=== PATIENT | female | born 1940 | race Caucasian/White ===

== ENCOUNTER 2018-02-21 15:25 | Outpatient (CLI) | payer MEDICARE ==
[~2018-02-21 15:25] MED LIST: BAC10T PO; GLIP5POW MC; LISI-222 PO; OMEP20CA4 PO; ONDA8TAB9 PO; OXYC-150 PO; ZOLP5TAB8 PO
== END 2018-02-21 23:59 | disposition home or self-care (01) ==
LOC: RAD 15:25
PROVIDERS: ATTEND Student in an Organized Health Care Education/Training Program
DX: R13.12 Dysphagia, oropharyngeal phase (principal); R49.0 Dysphonia; K21.9 Gastro-esophageal reflux disease without esophagitis
CPT/HCPCS: 74230

== ENCOUNTER 2018-12-26 10:25 | Emergency (ER) | payer MEDICARE ==
[~2018-12-26] VITALS: Ht 165.1 cm; Wt 79.0 kg
[2018-12-26] MEDS ORDERED: normal saline 1000ml 1,000 ML IV ONE ×2 (10:50→11:35)
[2018-12-26 11:15] LABS: BASOPHILS % (AUTO) 0.9 % (0-1); EOSINOPHILS # (AUTO) 0.2 X10'3 (0-0.9); EOSINOPHILS % (AUTO) 3.3 % (0-6); HEMATOCRIT 35.5 % (35.0-45.0); LYMPHOCYTES # (AUTO) 1.8 X10'3 (1.1-4.8); LYMPHOCYTES % (AUTO) 32.2 % (21-51); MEAN CORPUSCULAR HEMOGLOBIN 30.3 PG (27.0-31.0); MEAN CORPUSCULAR HGB CONC 33.8 g/dL (33.0-36.5); MEAN CORPUSCULAR VOLUME 89.8 FL (78-98); MEAN PLATELET VOLUME 7.3 FL (7.4-10.4); MONOCYTES # (AUTO) 0.5 X10'3 (0-0.9); MONOCYTES % (AUTO) 8.3 % (2-12); NEUTROPHILS # (AUTO) 3.1 X10'3 (1.8-7.7); NEUTROPHILS % (AUTO) 55.3 % (42-75); PLATELET COUNT 246 X10'3 (140-440); RED BLOOD COUNT 3.96 X10'6 (4.20-5.60); WHITE BLOOD COUNT 5.5 X10'3 (4.5-11.0)
[2018-12-26 11:31] LABS: ALANINE AMINOTRANSFERASE 18 U/L (12-78); ALBUMIN 3.7 G/DL (3.4-5.0); ALBUMIN/GLOBULIN RATIO 1.2 (1.1-1.5); ALKALINE PHOSPHATASE 77 IU/L (46-116); ANION GAP 8 (8-16); ASPARTATE AMINO TRANSFERASE 9 U/L (10-37); BILIRUBIN,TOTAL 0.6 MG/DL (0.1-1.0); BLOOD UREA NITROGEN 20 MG/DL (7-18); BUN/CREATININE RATIO 25.6 (6.6-38.0); CALCIUM 9.2 MG/DL (8.5-10.1); CHLORIDE 101 MMOL/L (99-107); CREATININE 0.78 MG/DL (0.40-0.90); GLUCOSE 258 MG/DL (70-104); POTASSIUM 4.6 MMOL/L (3.5-5.1); SODIUM 133 MMOL/L (135-145); TOTAL CARBON DIOXIDE 23.7 MMOL/L (24-32); TOTAL PROTEIN 6.7 G/DL (6.4-8.2); eGFR 72 ML/MIN
[2018-12-26 11:40] LABS: MAGNESIUM 1.6 MG/DL (1.5-2.4); PHOSPHORUS 3.6 MG/DL (2.3-4.5); TROPONIN I < 0.04 NG/ML (0.0-0.05)
[2018-12-26 12:53] LABS: CLARITY,URINE SLIGHTLY CLOUDY (Clear); COLOR,URINE YELLOW (Yellow); GLUCOSE, URINE NEGATIVE (Neg); KETONES,URINE NEGATIVE (Neg); LEUKOCYTE ESTERASE ,URINE SMALL (Neg); NITRITES, URINE POSITIVE (Neg); OCCULT BLOOD,URINE SMALL (Neg); PH,URINE 5.5 (4.8-8.0); PROTEIN,URINE NEGATIVE (Neg); UROBILINOGEN,URINE 0.2 E.U/dL (0.2-1.0)
[2018-12-26 12:54] VITALS: BP 184/89
[2018-12-26 12:55] LABS: UA COLLECTION TYPE CLN CATCH MIDSTREAM
[2018-12-26 13:00] LABS: BACTERIA,URINE 2+ /HPF (Neg); HYALINE CASTS 0-3 /LPF (NEGATIVE); SQUAMOUS EPITHELIAL CELL,UR FEW /LPF (FEW)
[2018-12-26 13:01] LABS: RBC,URINE 0-2 /HPF (0-2); WBC,URINE 0-4 /HPF (0-4)
--- NOTE | 2018-12-26 13:06 | NUR ---
relieving RN for lunch, pt is resting quietly on Dr Kehinde merino at bedside to reevaluate pt, PT stated she has urinated twice
[2018-12-26] MEDS ORDERED: CefTRIAXone/D5W-Rocephin 1gm 50 ML IV ONE (13:10)
[2018-12-26] MEDS ORDERED: fluconazole 100mg tablet PO ONE (13:10)
[2018-12-26] MEDS ORDERED: SULF1TAB49 PO (13:11)
== END 2018-12-26 14:19 | disposition home or self-care (01) ==
LOC: ER 10:25
DX: N39.0 Urinary tract infection, site not specified (principal); E86.0 Dehydration; I10 Essential (primary) hypertension; E11.9 Type 2 diabetes mellitus without complications; Z86.73 Personal history of transient ischemic attack (TIA), and cerebral infarction without residual deficits; Z98.61 Coronary angioplasty status; Z90.49 Acquired absence of other specified parts of digestive tract; Z98.890 Other specified postprocedural states; Z88.1 Allergy status to other antibiotic agents; Z88.5 Allergy status to narcotic agent; Z88.8 Allergy status to other drugs, medicaments and biological substances; Z79.899 Other long term (current) drug therapy
CPT/HCPCS: 36415; 71045; 80053; 81001; 82140; 83735; 84100; 84443; 84484; 85025; 85610; 87077; 87088; 87186; 93005; 96361; 96365; 99284; J0696; J7030

== ENCOUNTER 2019-03-01 20:24 | Inpatient (IN) | payer MEDICARE, OTHER ==
[~2019-03-01] VITALS: Ht 165.1 cm; Wt 79.7 kg
--- NOTE | 2019-03-01 20:48 | NUR ---
To CT via WC.
[2019-03-01] MEDS ORDERED: insulin regular, human 10 units/0.1 ml syringe IV ONE (21:15)
[2019-03-01] MEDS ORDERED: normal saline 1000ML IV soln IVB ONE (21:15)
[2019-03-01 21:21] LABS: BASOPHILS % (AUTO) 0.8 % (0-1); EOSINOPHILS # (AUTO) 0.2 X10'3 (0-0.9); EOSINOPHILS % (AUTO) 2.6 % (0-6); HEMOGLOBIN 12.5 g/dl (12.0-16.0); LYMPHOCYTES # (AUTO) 1.6 X10'3 (1.1-4.8); MEAN CORPUSCULAR HEMOGLOBIN 30.8 PG (27.0-31.0); MEAN CORPUSCULAR HGB CONC 33.7 g/dL (33.0-36.5); MEAN CORPUSCULAR VOLUME 91.5 FL (78-98); MEAN PLATELET VOLUME 7.5 FL (7.4-10.4); MONOCYTES # (AUTO) 0.5 X10'3 (0-0.9); NEUTROPHILS # (AUTO) 3.8 X10'3 (1.8-7.7); NEUTROPHILS % (AUTO) 62.6 % (42-75); PLATELET COUNT 247 X10'3 (140-440); RED BLOOD COUNT 4.05 X10'6 (4.20-5.60); RED CELL DISTRIBUTION WIDTH 13.1 % (11.5-14.5); WHITE BLOOD COUNT 6.1 X10'3 (4.5-11.0)
--- NOTE | 2019-03-01 21:30 | NUR ---
Verbal consent received from patient for neuro telemedicine evaluation.
[2019-03-01 21:36] LABS: ALANINE AMINOTRANSFERASE 27 U/L (12-78); ALBUMIN 3.7 G/DL (3.4-5.0); ALBUMIN/GLOBULIN RATIO 1.1 (1.1-1.5); ALKALINE PHOSPHATASE 87 IU/L (46-116); ANION GAP 9 (8-16); ASPARTATE AMINO TRANSFERASE 8 U/L (10-37); BILIRUBIN,TOTAL 0.4 MG/DL (0.1-1.0); BLOOD UREA NITROGEN 22 MG/DL (7-18); BUN/CREATININE RATIO 20.8 (6.6-38.0); CALCIUM 8.8 MG/DL (8.5-10.1); CHLORIDE 101 MMOL/L (99-107); CREATININE 1.06 MG/DL (0.40-0.90); GLUCOSE 427 MG/DL (70-104); POTASSIUM 4.3 MMOL/L (3.5-5.1); SODIUM 134 MMOL/L (135-145); TOTAL CARBON DIOXIDE 23.6 MMOL/L (24-32); TOTAL PROTEIN 7.1 G/DL (6.4-8.2); TROPONIN I < 0.04 NG/ML (0.0-0.05); eGFR 50 ML/MIN
[2019-03-01 21:52] LABS: PARTIAL THROMBOPLASTIN TIME 27 SECONDS (22-32)
[2019-03-01] MEDS ORDERED: BACL20TA PO (22:34)
[2019-03-01] MEDS ORDERED: LISI-604 PO (22:35)
[2019-03-01] MEDS ORDERED: TRAZ-251 PO (22:37)
[2019-03-01] MEDS ORDERED: morphine 4 MG/ML inj SYRINge IM ONE (22:55)
[2019-03-02] MEDS ORDERED: aspirin 325mg tablet PO ONE (00:05)
[2019-03-02] MEDS ORDERED: acetaminophen 325mg tablet PO PRN (00:45)
[2019-03-02] MEDS ORDERED: magnesium hydroxide 30ml (MOM) UD suspension PO PRN (00:45)
[2019-03-02] MEDS ORDERED: mag hydrox/Alum hydrox/simeth 30ml oral suspension PO PRN (00:45)
[2019-03-02] MEDS ORDERED: ondansetron/PF 4mg/2ml inj IV PRN (00:45)
[2019-03-02] MEDS ORDERED: glucagon, human recombinant 1mg kit SUBCUT PRN (00:50)
[2019-03-02] MEDS ORDERED: MESSAGE TO PHARMACY PO ONE (00:50)
[2019-03-02] MEDS ORDERED: dextrose 50%-water 50ml dispensing syringe IV PRN ×2 (00:50)
[2019-03-02] MEDS ORDERED: dextrose ORAL solution 15 GM/59 ML bottle PO PRN ×2 (00:50)
[2019-03-02 01:25] VITALS: BP 166/94
[2019-03-02 06:10] VITALS: BP 152/69
--- NOTE | 2019-03-02 06:26 | NUR ---
Problems reprioritized. Patient report given, questions answered & plan of care reviewed with HERNAN Kinney.
[2019-03-02 06:44] LABS: HEMOGLOBIN A1C 10.5 % (4.5-6.2)
--- NOTE | 2019-03-02 06:48 | NUR ---
I have received patient report from Emilie Quintanilla RN
[2019-03-02] MEDS: oxyCODONE/APAP 10/325mg tablet PO PRN ×2 (06:56→12:53)
[2019-03-02] MEDS: lisinopril 5mg tablet PO SCH (08:00)
[2019-03-02] MEDS: baclofen 10mg tablet PO SCH ×3 (08:16→20:21)
[2019-03-02] MEDS: heparin, porcine 5000 units/ml vial SQ SCH ×2 (08:17→20:22)
[2019-03-02] MEDS: insulin Lispro (HumaLOG) vial - multi-dose SQ SCH ×3 (09:47→19:05)
[2019-03-02 10:00] VITALS: BP 132/67
--- NOTE | 2019-03-02 13:27 | NUR ---
Dr. Calderon notified of MRI report
--- NOTE | 2019-03-02 16:14 | NUR ---
DM consult: Pt with A1c 10.5 seen at bedside. Pt reports her A1c was 6.4 three months ago and her MD took her off of Glipizide. Upon returning to f/u visit 3 weeks ago A1c was 9.0 however MD did not restart DM meds d/t this elevated A1c being an outlier. Pt reports she will be following up with MD following hospital discharge to further discuss appropriate measures for DM management. Pt states DM currently diet controlled and she consumes 15-30 g CHO/day and that she stopped checking BG levels regularly about 6 months ago. She now only checks her BG levels if she feels like she is having a high or low blood sugar. Pt provided with written and verbal DM ed with referral to outpatient DM class and RD contact information. Pt with hx MS admit with acute onset of left-sided weakness to r/o CVA. Pt reports difficulty swallowing d/t MS and states she had a BSS in 2017, pt agreeable to BSS with ST during hospital stay, ST consulted. Pt states she needs to swallow food on the left side because she usually has a tougher time swallowing on the right side. Pt states she doesn't require texture modifications however makes sure her food is moist to make it easier to swallow. Pt agreeable to gravy on meat TID and requests regular butter, d/w dietary. [facility] 03/01. Will continue to follow. Recommendations: 1) Continue CHO controlled diet with texture modification per ST pending BSS 2) Gravy on meat TID 3) Wt per rx Addendum: 03/02/19 at [address] Amended: Links added.
[2019-03-02 18:00] VITALS: BP 148/64
--- NOTE | 2019-03-02 18:09 | NUR ---
patient report given to Emilie BECERRA
--- NOTE | 2019-03-02 18:26 | NUR ---
Dr. Calderon paged about Soulmedrol possible order..waiting for call back or orders. Addendum: 03/02/19 at 1840 by Karen Pimentel RN I spoke with Dr. Calderon he ordered 1 gram soulmedrol x5 days and switched the percoset to oxy IR still 10mg. Patient dose not like Tylenol.
[2019-03-02] MEDS ORDERED: methylPREDNISolone sod succ 125mg/2ml vial IV SCH (18:35)
[2019-03-02] MEDS: methylPREDNISolone SOD SUCC 1000 MG in NORMAL SALINE 100ml IV SCH (19:06)
[2019-03-02] MEDS: oxyCODONE IR 5mg (immed. release) tablet PO PRN (20:21)
[2019-03-02] MEDS: traZODone 50mg tablet PO SCH (20:21)
[2019-03-02 22:05] VITALS: BP 159/71
[2019-03-03 02:31] VITALS: BP 135/69
[2019-03-03 06:00] VITALS: BP 148/78
--- NOTE | 2019-03-03 06:07 | NUR ---
Problems reprioritized. Patient report given, questions answered & plan of care reviewed with HERNAN Vasquez.
--- NOTE | 2019-03-03 06:20 | NUR ---
received report from cris gonzáles
[2019-03-03 06:24] LABS: CHOL/HDL RATIO 3.7 (0.00-4.99); CHOLESTEROL 233 MG/DL (0-200); HDL CHOLESTEROL 63 MG/DL (35-60); LDL CHOLESTEROL 154 MG/DL (50-100); TRIGLYCERIDES 58 MG/DL (20-135)
[2019-03-03] MEDS: baclofen 10mg tablet PO SCH ×3 (07:26→20:46)
[2019-03-03] MEDS: lisinopril 5mg tablet PO SCH (07:27)
[2019-03-03] MEDS: oxyCODONE IR 5mg (immed. release) tablet PO PRN ×3 (07:32→19:36)
[2019-03-03] MEDS: heparin, porcine 5000 units/ml vial SQ SCH ×2 (07:33→19:35)
[2019-03-03] MEDS: methylPREDNISolone SOD SUCC 1000 MG in NORMAL SALINE 100ml IV SCH (07:35)
[2019-03-03] MEDS: insulin Lispro (HumaLOG) vial - multi-dose SQ SCH ×4 (08:49→21:20)
[2019-03-03 10:00] VITALS: BP 114/53
[2019-03-03 14:00] VITALS: BP 102/47
[2019-03-03 18:00] VITALS: BP 100/47
--- NOTE | 2019-03-03 18:12 | NUR ---
gave report to cris parkinson
--- NOTE | 2019-03-03 18:35 | NUR ---
Patient in room ORTHO 4022. I have received report from Christina BECERRA and had the opportunity to ask questions and assume patient care.
--- NOTE | 2019-03-03 20:40 | NUR ---
PAGER ID: [phone] MESSAGE: Patient Becky Foster Rm [id number] She is on the hyperglycemic protocol however there is no Lantus ordered. She is a level 6 and blood sugars still running high. Would you like to add the Lantus per the protocol? Thank you! Belkis BECERRA ext. [phone]
--- NOTE | 2019-03-03 20:43 | NUR ---
Dr. Calderon replied to page and ordered to start patient on Lantus per the protocol.
[2019-03-03] MEDS: traZODone 50mg tablet PO SCH (20:46)
[2019-03-03] MEDS: insulin glargine (Lantus) pen - multi-dose SQ SCH (21:21)
[2019-03-03 22:00] VITALS: BP_SYST 100; BP_SYST 104; BP_DIAS 46; BP_DIAS 47
[2019-03-04] MEDS: oxyCODONE IR 5mg (immed. release) tablet PO PRN ×4 (01:47→19:50)
[2019-03-04 06:00] VITALS: BP 134/64
--- NOTE | 2019-03-04 06:07 | NUR ---
received report from cris anna
--- NOTE | 2019-03-04 06:08 | NUR ---
Problems reprioritized. Patient report given, questions answered & plan of care reviewed with Christina BECERRA.
[2019-03-04] MEDS: baclofen 10mg tablet PO SCH ×3 (07:14→20:29)
[2019-03-04] MEDS: heparin, porcine 5000 units/ml vial SQ SCH ×2 (07:17→20:29)
[2019-03-04] MEDS: methylPREDNISolone SOD SUCC 1000 MG in NORMAL SALINE 100ml IV SCH (07:23)
[2019-03-04] MEDS: lisinopril 5mg tablet PO SCH (07:27)
[2019-03-04] MEDS: insulin Lispro (HumaLOG) vial - multi-dose SQ SCH ×3 (08:41→19:31)
[2019-03-04 09:00] VITALS: BP 123/59
[2019-03-04 18:00] VITALS: BP 122/48
[2019-03-04] MEDS: traZODone 50mg tablet PO SCH (20:29)
[2019-03-04] MEDS: insulin glargine (Lantus) pen - multi-dose SQ SCH (21:15)
[2019-03-04 22:00] VITALS: BP 133/65
[2019-03-05] MEDS: oxyCODONE IR 5mg (immed. release) tablet PO PRN ×4 (01:52→21:03)
[2019-03-05 06:00] VITALS: BP 139/69
--- NOTE | 2019-03-05 06:15 | NUR ---
received report from cris saba
--- NOTE | 2019-03-05 06:19 | NUR ---
REPORT GIVEN TO HERNAN KRISHNAMURTHY.
[2019-03-05] MEDS: lisinopril 5mg tablet PO SCH (08:00)
[2019-03-05] MEDS: baclofen 10mg tablet PO SCH ×3 (08:10→21:02)
[2019-03-05] MEDS: methylPREDNISolone SOD SUCC 1000 MG in NORMAL SALINE 100ml IV SCH (08:11)
[2019-03-05] MEDS: heparin, porcine 5000 units/ml vial SQ SCH ×2 (08:12→20:53)
[2019-03-05] MEDS: insulin Lispro (HumaLOG) vial - multi-dose SQ SCH ×4 (08:22→20:57)
[2019-03-05 10:00] VITALS: BP 112/43
--- NOTE | 2019-03-05 14:48 | NUR ---
Pt said she just got up to the bathroom and felt "funny" checked her blood sugar 268, then checked B/P 119/54. All seemed fine as far as her sugar and B/P.
--- NOTE | 2019-03-05 18:08 | NUR ---
gave report to cris saba
[2019-03-05 18:49] VITALS: BP 126/57
[2019-03-05] MEDS: insulin glargine (Lantus) pen - multi-dose SQ SCH (20:56)
[2019-03-05] MEDS ORDERED: polyethylene glycol 3350 17gm powd pack PO SCH (21:00)
[2019-03-05] MEDS: traZODone 50mg tablet PO SCH (21:02)
[2019-03-05 22:00] VITALS: BP 130/57
[2019-03-06 06:00] VITALS: BP 166/85
--- NOTE | 2019-03-06 06:10 | NUR ---
Patient in room ORTHO 4022. I have received report from Bina BECERRA and had the opportunity to ask questions and assume patient care.
--- NOTE | 2019-03-06 06:45 | NUR ---
report given to cris Pierre.
[2019-03-06] MEDS: oxyCODONE IR 5mg (immed. release) tablet PO PRN ×2 (07:14→13:54)
[2019-03-06] MEDS: methylPREDNISolone SOD SUCC 1000 MG in NORMAL SALINE 100ml IV SCH (07:51)
[2019-03-06] MEDS: heparin, porcine 5000 units/ml vial SQ SCH (07:52)
[2019-03-06] MEDS: baclofen 10mg tablet PO SCH ×2 (07:52→13:03)
[2019-03-06] MEDS: lisinopril 5mg tablet PO SCH (07:57)
[2019-03-06] MEDS: insulin Lispro (HumaLOG) vial - multi-dose SQ SCH ×2 (09:59→14:00)
[2019-03-06 10:00] VITALS: BP 137/62
--- NOTE | 2019-03-06 15:40 | NUR ---
Pt is alert and oriented and sanchez snot have c/o pain or discomfort at this time. [facility] All of pt's belongings were returned to pt. Pt's spouse will follow van to [facility].
== END 2019-03-06 15:40 | DRG 60 ==
LOC: ER 20:24 → ORTHO 4S 03-02 01:14 → CMPBEDREQ 03-04 19:47
PROVIDERS: ADMIT Internal Medicine; ATTEND Family Medicine
DX: G35 Multiple sclerosis (principal); E11.65 Type 2 diabetes mellitus with hyperglycemia; I10 Essential (primary) hypertension; G89.29 Other chronic pain; M54.9 Dorsalgia, unspecified; Z86.73 Personal history of transient ischemic attack (TIA), and cerebral infarction without residual deficits; Z98.1 Arthrodesis status; Z87.440 Personal history of urinary (tract) infections; Z88.1 Allergy status to other antibiotic agents; Z88.5 Allergy status to narcotic agent; Z88.8 Allergy status to other drugs, medicaments and biological substances; Z98.61 Coronary angioplasty status; Z82.3 Family history of stroke; Z82.5 Family history of asthma and other chronic lower respiratory diseases; Z80.1 Family history of malignant neoplasm of trachea, bronchus and lung
CPT/HCPCS: 36415; 70450; 70544; 70551; 71045; 80053; 80061; 82948; 83036; 84484; 85025; 85610; 85730; 87081; 92508; 92616; 93005; 93306; 96361; 96372; 96374; 97110; 97116; 97124; 97162; 97530; 99285; G0378; J1644; J1815; J2270; J2930

== ENCOUNTER 2019-06-19 11:25 | Emergency (ER) | payer MEDICARE ==
[~2019-06-19] VITALS: Ht 165.1 cm; Wt 71.4 kg
[~2019-06-19 11:25] MED LIST changes: -BAC10T PO; +BACL20TA PO; -GLIP5POW MC; -LISI-222 PO; +LISI-604 PO; -OMEP20CA4 PO; -ONDA8TAB9 PO; +TRAZ-251 PO; -ZOLP5TAB8 PO
[2019-06-19] MEDS ORDERED: ondansetron 4mg rapidly disintigrating tab PO ONE (13:30)
[2019-06-19] MEDS ORDERED: morphine 4 MG/ML inj SYRINge IM ONE (13:30)
[2019-06-19 14:15] VITALS: BP 132/50
== END 2019-06-19 14:17 | disposition home or self-care (01) ==
LOC: ER 11:25
DX: M25.461 Effusion, right knee (principal); M54.9 Dorsalgia, unspecified; G89.29 Other chronic pain; I10 Essential (primary) hypertension; E11.9 Type 2 diabetes mellitus without complications; Z98.61 Coronary angioplasty status; Z90.49 Acquired absence of other specified parts of digestive tract; Z98.890 Other specified postprocedural states; Z88.5 Allergy status to narcotic agent; Z88.1 Allergy status to other antibiotic agents; Z88.8 Allergy status to other drugs, medicaments and biological substances; Z79.899 Other long term (current) drug therapy; W10.1XXA Fall (on)(from) sidewalk curb, initial encounter; Y93.89 Activity, other specified; Y92.89 Other specified places as the place of occurrence of the external cause; Y99.8 Other external cause status
CPT/HCPCS: 29505; 73564; 96372; 99283; J2270

== ENCOUNTER 2019-07-11 15:51 | Outpatient (CLI) | payer MEDICARE | END 2019-07-11 16:30 | disposition home or self-care (01) | LOC: ORTHO 15:51 | PROVIDERS: ATTEND Orthopaedic Surgery | DX: M25.561 Pain in right knee (principal); M25.461 Effusion, right knee; Z47.89 Encounter for other orthopedic aftercare; I10 Essential (primary) hypertension; W18.43XD Slipping, tripping and stumbling without falling due to stepping from one level to another, subsequent encounter; Y92.89 Other specified places as the place of occurrence of the external cause; Y93.89 Activity, other specified | CPT/HCPCS: G0463 ==

== ENCOUNTER 2019-07-17 13:41 | Outpatient (CLI) | payer MEDICARE | END 2019-07-17 23:59 | disposition home or self-care (01) | LOC: RAD 13:41 | PROVIDERS: ATTEND Orthopaedic Surgery | DX: M17.11 Unilateral primary osteoarthritis, right knee (principal); M25.461 Effusion, right knee; M71.21 Synovial cyst of popliteal space [Baker], right knee; M22.41 Chondromalacia patellae, right knee | CPT/HCPCS: 73721 ==

== ENCOUNTER 2019-08-13 15:37 | Outpatient (CLI) | payer MEDICARE | END 2019-08-13 17:00 | disposition home or self-care (01) | LOC: ORTHO 15:37 | PROVIDERS: ATTEND Orthopaedic Surgery | DX: M17.11 Unilateral primary osteoarthritis, right knee (principal); I10 Essential (primary) hypertension; E11.9 Type 2 diabetes mellitus without complications; Z98.890 Other specified postprocedural states | CPT/HCPCS: G0463 ==

== ENCOUNTER 2019-10-16 07:01 | Day surgery (SDC) | payer MEDICARE ==
[2019-10-08 14:16] LABS: BASOPHILS # (AUTO) 0.1 X10'3 (0-0.2); BASOPHILS % (AUTO) 0.8 % (0-1); EOSINOPHILS # (AUTO) 0.2 X10'3 (0-0.9); EOSINOPHILS % (AUTO) 2.9 % (0-6); LYMPHOCYTES % (AUTO) 24.8 % (21-51); MEAN CORPUSCULAR HEMOGLOBIN 30.7 PG (27.0-31.0); MEAN CORPUSCULAR HGB CONC 34.4 g/dL (33.0-36.5); MEAN CORPUSCULAR VOLUME 89.3 FL (78-98); MEAN PLATELET VOLUME 7.2 FL (7.4-10.4); MONOCYTES # (AUTO) 0.6 X10'3 (0-0.9); MONOCYTES % (AUTO) 7.3 % (2-12); NEUTROPHILS # (AUTO) 5.2 X10'3 (1.8-7.7); NEUTROPHILS % (AUTO) 64.2 % (42-75); PRE OP HEMATOCRIT 35.2 % (35.0-45.0); PRE OP HEMOGLOBIN 12.1 g/dL (12.0-16.0); PRE OP PLATELET COUNT 258 X10'3 (140-440); RED BLOOD COUNT 3.95 X10'6 (4.20-5.60); RED CELL DISTRIBUTION WIDTH 13.7 % (11.5-14.5)
[2019-10-08 14:21] LABS: ALBUMIN 3.8 G/DL (3.4-5.0); ALBUMIN/GLOBULIN RATIO 1.2 (1.1-1.5); ALKALINE PHOSPHATASE 72 IU/L (46-116); BLOOD UREA NITROGEN 26 MG/DL (7-18); BUN/CREATININE RATIO 32.9 (6.6-38.0); CALCIUM 9.4 MG/DL (8.5-10.1); CHLORIDE 105 MMOL/L (99-107); CREATININE 0.79 MG/DL (0.40-0.90); PRE OP ALT 21 U/L (30-65); PRE OP ANION GAP 8 (8-16); PRE OP AST 25 U/L (10-37); PRE OP BILIRUB, TOTAL 0.5 MG/DL (0.0-1.0); PRE OP GLUCOSE 119 MG/DL (70-104); PRE OP POTASSIUM 4.7 MMOL/L (3.4-5.1); PRE OP SODIUM 139 MMOL/L (135-145); TOTAL CARBON DIOXIDE 26.1 MMOL/L (24-32); eGFR 71 ML/MIN
[2019-10-08 14:28] LABS: PRE OP INR 0.9 INR; PRE OP PROTIME 9.8 SECONDS (9.0-12.0)
[2019-10-16] VITALS (15 sets, daily range): BP systolic 111–185; BP diastolic 59–92
[~2019-10-16] VITALS: Ht 165.1 cm; Wt 83.7 kg
[~2019-10-16 07:01] MED LIST changes: +ASCO-139 PO; +CHOL10006 PO; +DIPH50CA39 PO; +GLIM2TAB6 PO; -OXYC-150 PO; +OXYC10TA47 PO; +cefazolin/dext.iso 2gm/50ml 50 ML IV ONE; +famotidine 20mg tablet PO ONE; +ringers solution, lacted 1,000 ML IV SCH
[2019-10-16] MEDS ORDERED: oxyCODONE/APAP 10/325mg tablet PO ONE (09:05)
[2019-10-16] MEDS ORDERED: sevoflurane 250ml liquid IH ONE (09:36)
[2019-10-16] MEDS ORDERED: fentaNYL/PF 50MCG/1 ML 2ML syringe ONE ×2 (09:46→09:53)
[2019-10-16] MEDS ORDERED: propofol inj 20 ML IV ONE (09:46)
[2019-10-16] MEDS ORDERED: ROPIVAcaine 0.5% (5mg/ml) 30ml vial ONE (09:51)
[2019-10-16] MEDS ORDERED: morphine 2 MG/ML inj. syringe IV PRN (10:10)
[2019-10-16] MEDS ORDERED: ringers solution, lacted 1,000 ML IV SCH (10:10)
[2019-10-16] MEDS ORDERED: proCHLORperazine 10 MG/2 ml inj IV PRN (10:10)
[2019-10-16] MEDS ORDERED: meperidine/PF 25mg/ml syringe IV PRN ×3 (10:10)
[2019-10-16] MEDS ORDERED: ondansetron/PF 4mg/2ml inj IV PRN (10:10)
--- NOTE | 2019-10-16 11:05 | NUR ---
Received from OR via SEGUNDO , accompanied by Anesthesiologist DIONISIO and report given by Anesthesiolgist.PATIENT WITH 20G PIV IN LEFT UE RUNNING LR AT 100. RIGHT KNEE LU BANDAGE IS CDI AT THIS TIME. + DP, + CAP REFILL AND MOVEMENT AND SENSATION. MEDICATED FOR PAIN UPON ARRIVAL VSS, WILL CONTINUE TO ASSESS. Addendum: 10/16/19 at 1117 by Chang Lai RN, RN Amended: Links added.
[2019-10-16] MEDS: morphine 4 MG/ML inj SYRINge IV PRN ×2 (11:32→11:42)
--- NOTE | 2019-10-16 11:33 | NUR ---
88 BLOOD GLUCOSE UPON ARRIVAL FROM OR. Addendum: 10/16/19 at 1134 by Chang Lai RN RN Amended: Links added.
[2019-10-16] MEDS ORDERED: oxyCODONE IR 5mg (immed. release) tablet PO ONE (12:40)
--- NOTE | 2019-10-16 13:15 | NUR ---
ALL DC CRITERIA HAS BEEN MET. IV TAKEN OUT WITHOUT COMPLICATIONS. ALL INSTRUCTIONS COVERED AND ALL QUESTIONS ANSWERED. DRESSINGS CDI. OUT VIA WHEELCHAIR TO PERSONAL VEHICLE WHERE PATIENT WAS SECURED IN AND DRIVEN HOME BY FAMILY. ALL DC INSTRUCTIONS COVERED, VSS. SPOUSE PRESENT FOR DC INSTRUCTIONS. PATIENT STATES THAT SHE "FEELS WONDERFUL" TRANSFERED TO FRONT PASSENGER SEAT WITH SUPERVISION. SPOUSE DROVE PATIENT HOME. Addendum: 10/16/19 at 1332 by Chang Lai RN, RN Amended: Links added.
[2019-10-16] MEDS ORDERED: acetaminophen 1,000mg/100ml IV 100 ML IV SCH (14:00)
== END 2019-10-16 13:15 | disposition home or self-care (01) ==
LOC: PAS 07:01
PROVIDERS: ATTEND Orthopaedic Surgery
DX: M23.241 Derangement of anterior horn of lateral meniscus due to old tear or injury, right knee (principal); M23.221 Derangement of posterior horn of medial meniscus due to old tear or injury, right knee; M25.761 Osteophyte, right knee; M11.261 Other chondrocalcinosis, right knee; I10 Essential (primary) hypertension; G89.29 Other chronic pain; Z79.899 Other long term (current) drug therapy; Z79.01 Long term (current) use of anticoagulants; Z88.8 Allergy status to other drugs, medicaments and biological substances
CPT/HCPCS: 29880; 36415; 80053; 82948; 85025; 85610; 85730; 93005; J2175; J2270; J2704; J3010; A4215; A4618; A6449; A7000; J2795; J7120

== ENCOUNTER 2019-10-21 10:13 | Emergency (ER) | payer MEDICARE ==
[~2019-10-21] VITALS: Ht 165.1 cm; Wt 79.1 kg
[~2019-10-21 10:13] MED LIST changes: -DIPH50CA39 PO; -cefazolin/dext.iso 2gm/50ml 50 ML IV ONE; -famotidine 20mg tablet PO ONE; -ringers solution, lacted 1,000 ML IV SCH
[2019-10-21 10:15] VITALS: BP 128/75
== END 2019-10-21 12:14 | disposition home or self-care (01) ==
LOC: ER 10:13
DX: M96.841 Postprocedural hematoma of a musculoskeletal structure following other procedure (principal); G35 Multiple sclerosis; I10 Essential (primary) hypertension; E11.9 Type 2 diabetes mellitus without complications; G89.29 Other chronic pain; Z95.5 Presence of coronary angioplasty implant and graft; Z86.73 Personal history of transient ischemic attack (TIA), and cerebral infarction without residual deficits; Z90.49 Acquired absence of other specified parts of digestive tract; Z98.890 Other specified postprocedural states; Z88.1 Allergy status to other antibiotic agents; Z88.5 Allergy status to narcotic agent; Z88.8 Allergy status to other drugs, medicaments and biological substances; Z79.899 Other long term (current) drug therapy
CPT/HCPCS: 29505; 99284

== ENCOUNTER 2020-01-06 02:41 | Emergency (ER) | payer MEDICARE ==
[~2020-01-06] VITALS: Ht 165.1 cm; Wt 82.7 kg
--- NOTE | 2020-01-06 02:57 | NUR ---
PT TO X RAY
[2020-01-06 03:19] LABS: BASOPHILS # (AUTO) 0.1 X10'3 (0-0.2); BASOPHILS % (AUTO) 0.9 % (0-1); EOSINOPHILS # (AUTO) 0.3 X10'3 (0-0.9); EOSINOPHILS % (AUTO) 4.2 % (0-6); HEMATOCRIT 37.5 % (35.0-45.0); HEMOGLOBIN 12.4 g/dl (12.0-16.0); LYMPHOCYTES # (AUTO) 2.5 X10'3 (1.1-4.8); LYMPHOCYTES % (AUTO) 36.4 % (21-51); MEAN CORPUSCULAR HGB CONC 33.1 g/dL (33.0-36.5); MEAN CORPUSCULAR VOLUME 90.6 FL (78-98); MEAN PLATELET VOLUME 7.2 FL (7.4-10.4); MONOCYTES # (AUTO) 0.6 X10'3 (0-0.9); MONOCYTES % (AUTO) 8.9 % (2-12); NEUTROPHILS # (AUTO) 3.4 X10'3 (1.8-7.7); NEUTROPHILS % (AUTO) 49.6 % (42-75); PLATELET COUNT 259 X10'3 (140-440); RED BLOOD COUNT 4.13 X10'6 (4.20-5.60); RED CELL DISTRIBUTION WIDTH 14.6 % (11.5-14.5); WHITE BLOOD COUNT 6.8 X10'3 (4.5-11.0)
[2020-01-06 03:35] LABS: ALANINE AMINOTRANSFERASE 19 U/L (12-78); ALBUMIN 3.9 G/DL (3.4-5.0); ALBUMIN/GLOBULIN RATIO 1.1 (1.1-1.5); ALKALINE PHOSPHATASE 66 IU/L (46-116); ANION GAP 7 (8-16); ASPARTATE AMINO TRANSFERASE 15 U/L (10-37); BILIRUBIN,TOTAL 0.3 MG/DL (0.1-1.0); BLOOD UREA NITROGEN 24 MG/DL (7-18); BUN/CREATININE RATIO 27.6 (6.6-38.0); CALCIUM 8.9 MG/DL (8.5-10.1); CHLORIDE 104 MMOL/L (99-107); CREATININE 0.87 MG/DL (0.40-0.90); GLUCOSE 127 MG/DL (70-104); POTASSIUM 4.5 MMOL/L (3.5-5.1); SODIUM 138 MMOL/L (135-145); TOTAL CARBON DIOXIDE 26.6 MMOL/L (24-32); TOTAL PROTEIN 7.4 G/DL (6.4-8.2); eGFR 63 ML/MIN
[2020-01-06 05:59] VITALS: BP 154/73
== END 2020-01-06 06:03 | disposition home or self-care (01) ==
LOC: ER 02:41
DX: R07.89 Other chest pain (principal); G35 Multiple sclerosis; I25.10 Atherosclerotic heart disease of native coronary artery without angina pectoris; I10 Essential (primary) hypertension; E11.9 Type 2 diabetes mellitus without complications; G89.29 Other chronic pain; Z98.61 Coronary angioplasty status; Z90.49 Acquired absence of other specified parts of digestive tract; Z86.73 Personal history of transient ischemic attack (TIA), and cerebral infarction without residual deficits; Z98.890 Other specified postprocedural states; Z88.8 Allergy status to other drugs, medicaments and biological substances; Z79.899 Other long term (current) drug therapy
CPT/HCPCS: 36415; 71045; 80053; 84484; 85025; 93005; 99285

== ENCOUNTER 2020-01-12 14:05 | Inpatient (IN) | payer MEDICARE ==
[~2020-01-12] VITALS: Ht 165.1 cm; Wt 83.2 kg
[2020-01-12 14:33] LABS: BASOPHILS % (AUTO) 0.8 % (0-1); EOSINOPHILS # (AUTO) 0.2 X10'3 (0-0.9); EOSINOPHILS % (AUTO) 3.7 % (0-6); HEMATOCRIT 37.5 % (35.0-45.0); HEMOGLOBIN 12.5 g/dl (12.0-16.0); LYMPHOCYTES # (AUTO) 1.6 X10'3 (1.1-4.8); MEAN CORPUSCULAR HEMOGLOBIN 30.4 PG (27.0-31.0); MEAN CORPUSCULAR HGB CONC 33.3 g/dL (33.0-36.5); MEAN CORPUSCULAR VOLUME 91.4 FL (78-98); MEAN PLATELET VOLUME 6.9 FL (7.4-10.4); MONOCYTES # (AUTO) 0.5 X10'3 (0-0.9); MONOCYTES % (AUTO) 8.6 % (2-12); NEUTROPHILS # (AUTO) 3.2 X10'3 (1.8-7.7); NEUTROPHILS % (AUTO) 57.9 % (42-75); PLATELET COUNT 258 X10'3 (140-440); RED CELL DISTRIBUTION WIDTH 14.6 % (11.5-14.5); WHITE BLOOD COUNT 5.5 X10'3 (4.5-11.0)
[2020-01-12 14:50] LABS: ALANINE AMINOTRANSFERASE 16 U/L (12-78); ALBUMIN 3.9 G/DL (3.4-5.0); ALBUMIN/GLOBULIN RATIO 1.2 (1.1-1.5); ALKALINE PHOSPHATASE 67 IU/L (46-116); ANION GAP 7 (8-16); ASPARTATE AMINO TRANSFERASE 17 U/L (10-37); BILIRUBIN,TOTAL 0.6 MG/DL (0.1-1.0); BLOOD UREA NITROGEN 31 MG/DL (7-18); BUN/CREATININE RATIO 30.7 (6.6-38.0); CHLORIDE 105 MMOL/L (99-107); CREATININE 1.01 MG/DL (0.40-0.90); GLUCOSE 154 MG/DL (70-104); POTASSIUM 4.6 MMOL/L (3.5-5.1); SODIUM 140 MMOL/L (135-145); TOTAL CARBON DIOXIDE 28.4 MMOL/L (24-32); TOTAL PROTEIN 7.2 G/DL (6.4-8.2); eGFR 53 ML/MIN
[2020-01-12] MEDS ORDERED: ondansetron/PF 4mg/2ml inj IV ONE (15:05)
[2020-01-12] MEDS ORDERED: normal saline 1000ML IV soln IVB ONE (15:05)
[2020-01-12] MEDS: morphine 4 MG/ML inj SYRINge IV PRN (15:10)
[2020-01-12] MEDS ORDERED: baclofen 10mg tablet PO PRN (15:55)
[2020-01-12] MEDS ORDERED: magnesium Cl slow-release 64mg tablet PO PRN (16:20)
[2020-01-12] MEDS ORDERED: ondansetron/PF 4mg/2ml inj IV PRN (16:20)
[2020-01-12] MEDS ORDERED: potassium Cl 20 mEq SR tablet PO PRN ×2 (16:20)
[2020-01-12] MEDS ORDERED: magnesium 2GM in 50ml NS 50 ML IV PRN (16:20)
[2020-01-12] MEDS ORDERED: magnesium 4gm in 100ml NS 100 ML IV PRN (16:20)
[2020-01-12] MEDS ORDERED: acetaminophen 325mg tablet PO PRN ×2 (16:20)
[2020-01-12] MEDS ORDERED: potassium CL 10mEq/100ml bag 100 ML IV PRN ×2 (16:20)
[2020-01-12] MEDS ORDERED: glucagon, human recombinant 1mg kit SUBCUT PRN ×2 (16:40→19:15)
[2020-01-12] MEDS ORDERED: insulin Lispro (HumaLOG) vial - multi-dose SQ SCH ×2 (16:40→19:15)
[2020-01-12] MEDS ORDERED: MESSAGE TO PHARMACY PO ONE ×2 (16:40→19:15)
[2020-01-12] MEDS ORDERED: dextrose ORAL solution 15 GM/59 ML bottle PO PRN ×4 (16:40→19:15)
[2020-01-12] MEDS ORDERED: dextrose 50%-water 50ml dispensing syringe IV PRN ×4 (16:40→19:15)
--- NOTE | 2020-01-12 17:29 | NUR ---
RECEIVED TELEPHONE REPORT FROM HERNAN WOODS
[2020-01-12 18:34] LABS: HEMOGLOBIN A1C 7.2 % (4.5-6.2)
[2020-01-12 19:00] VITALS: BP 137/77
[2020-01-12] MEDS: K and/or MAG REPLACEMENT MC SCH (20:00)
[2020-01-12] MEDS: heparin, porcine 5000 units/ml vial SQ SCH (20:55)
[2020-01-12] MEDS: docusate sod 100mg capsule PO SCH (20:55)
[2020-01-12] MEDS: baclofen 10mg tablet PO SCH (20:55)
[2020-01-12] MEDS: traZODone 50mg tablet PO SCH (20:55)
[2020-01-12] MEDS: insulin glargine (Lantus) pen - multi-dose SQ SCH ×2 (21:00)
[2020-01-12] MEDS: oxyCODONE IR 5mg (immed. release) tablet PO PRN (21:07)
[2020-01-12] MEDS: normal saline 1000ml 1,000 ML IV SCH (21:08)
[2020-01-12 23:00] VITALS: BP 138/72
[2020-01-13] VITALS (10 sets, daily range): BP systolic 111–184; BP diastolic 48–75
[2020-01-13] MEDS: morphine 4 MG/ML inj SYRINge IV PRN (01:12)
[2020-01-13] MEDS: nitroGLYCERIN 0.4mg SUBLingual tab SL PRN ×3 (02:09→02:29)
[2020-01-13] MEDS: oxyCODONE IR 5mg (immed. release) tablet PO PRN ×4 (02:34→22:07)
[2020-01-13] MEDS ORDERED: LORazepam 1 MG tablet PO ONE (02:55)
[2020-01-13] MEDS: normal saline 1000ml 1,000 ML IV SCH ×3 (03:40→12:18)
[2020-01-13 05:57] LABS: BASOPHILS % (AUTO) 0.5 % (0-1); EOSINOPHILS # (AUTO) 0.2 X10'3 (0-0.9); EOSINOPHILS % (AUTO) 4.3 % (0-6); HEMATOCRIT 33.2 % (35.0-45.0); HEMOGLOBIN 11.1 g/dl (12.0-16.0); LYMPHOCYTES % (AUTO) 36.2 % (21-51); MEAN CORPUSCULAR HEMOGLOBIN 30.5 PG (27.0-31.0); MEAN CORPUSCULAR HGB CONC 33.3 g/dL (33.0-36.5); MEAN CORPUSCULAR VOLUME 91.5 FL (78-98); MEAN PLATELET VOLUME 6.9 FL (7.4-10.4); MONOCYTES # (AUTO) 0.5 X10'3 (0-0.9); MONOCYTES % (AUTO) 8.8 % (2-12); NEUTROPHILS # (AUTO) 2.7 X10'3 (1.8-7.7); NEUTROPHILS % (AUTO) 50.2 % (42-75); PLATELET COUNT 222 X10'3 (140-440); RED BLOOD COUNT 3.63 X10'6 (4.20-5.60); RED CELL DISTRIBUTION WIDTH 14.4 % (11.5-14.5); WHITE BLOOD COUNT 5.4 X10'3 (4.5-11.0)
[2020-01-13 06:21] LABS: ALANINE AMINOTRANSFERASE 15 U/L (12-78); ALBUMIN 3.1 G/DL (3.4-5.0); ALKALINE PHOSPHATASE 53 IU/L (46-116); ANION GAP 9 (8-16); ASPARTATE AMINO TRANSFERASE 16 U/L (10-37); BILIRUBIN,TOTAL 0.6 MG/DL (0.1-1.0); BLOOD UREA NITROGEN 20 MG/DL (7-18); BUN/CREATININE RATIO 24.1 (6.6-38.0); CHLORIDE 105 MMOL/L (99-107); CREATININE 0.83 MG/DL (0.40-0.90); GLUCOSE 105 MG/DL (70-104); POTASSIUM 4.2 MMOL/L (3.5-5.1); SODIUM 140 MMOL/L (135-145); TOTAL CARBON DIOXIDE 26.2 MMOL/L (24-32); TOTAL PROTEIN 6.2 G/DL (6.4-8.2); eGFR 67 ML/MIN
[2020-01-13 06:24] LABS: CHOL/HDL RATIO 3.8 (0.00-4.99); CHOLESTEROL 210 MG/DL (0-200); HDL CHOLESTEROL 56 MG/DL (35-60); LDL CHOLESTEROL 122 MG/DL (50-100); MAGNESIUM 1.9 MG/DL (1.5-2.4); TRIGLYCERIDES 166 MG/DL (20-135)
--- NOTE | 2020-01-13 06:25 | NUR ---
Patient in room PCU 3012. I have received report from cris Prince and had the opportunity to ask questions and assume patient care.
[2020-01-13] MEDS: baclofen 10mg tablet PO SCH ×3 (07:46→22:08)
[2020-01-13] MEDS: docusate sod 100mg capsule PO SCH ×2 (07:46→22:07)
[2020-01-13] MEDS: nitroGLYCERIN 0.4mg/hour patch TD SCH (07:48)
[2020-01-13] MEDS: heparin, porcine 5000 units/ml vial SQ SCH ×2 (07:49→22:09)
[2020-01-13] MEDS ORDERED: lisinopril 5mg tablet PO SCH (08:00)
[2020-01-13] MEDS: K and/or MAG REPLACEMENT MC SCH ×2 (08:48→20:00)
--- NOTE | 2020-01-13 11:48 | NUR ---
DM Consult: A1C 7.2 and TG 166, Cholesterol 210, LDL 122 on admit. Pt seen by RD for written/verbal DM/HH diet eds w/ RD contact information provided. Pt reports A1C down from 9.0 prior and has decreased total carb intake and no current questions/concerns. RD encouraged pt to contact dietitian's office if further questions. Addendum: 01/13/20 at [address] Amended: Links added.
[2020-01-13] MEDS: carvedilol 6.25mg tablet PO SCH (18:17)
--- NOTE | 2020-01-13 18:40 | NUR ---
Problems reprioritized. Patient report given, questions answered & plan of care reviewed with HERNAN Prince.
[2020-01-13] MEDS: insulin glargine (Lantus) pen - multi-dose SQ SCH ×2 (21:00)
[2020-01-13] MEDS: traZODone 50mg tablet PO SCH (22:08)
--- NOTE | 2020-01-13 23:30 | NUR ---
MEDICATION GIVEN FOR ANXIETY AND PAIN EARLIER WITH GOOD EFFECT
[2020-01-14] VITALS (8 sets, daily range): BP systolic 151–200; BP diastolic 69–100
[2020-01-14 06:25] LABS: BASOPHILS % (AUTO) 0.5 % (0-1); EOSINOPHILS # (AUTO) 0.1 X10'3 (0-0.9); EOSINOPHILS % (AUTO) 2.1 % (0-6); HEMATOCRIT 37.1 % (35.0-45.0); HEMOGLOBIN 12.3 g/dl (12.0-16.0); LYMPHOCYTES # (AUTO) 1.7 X10'3 (1.1-4.8); LYMPHOCYTES % (AUTO) 29.1 % (21-51); MEAN CORPUSCULAR VOLUME 90.7 FL (78-98); MEAN PLATELET VOLUME 6.9 FL (7.4-10.4); MONOCYTES # (AUTO) 0.5 X10'3 (0-0.9); MONOCYTES % (AUTO) 8.6 % (2-12); NEUTROPHILS # (AUTO) 3.5 X10'3 (1.8-7.7); NEUTROPHILS % (AUTO) 59.7 % (42-75); PLATELET COUNT 244 X10'3 (140-440); RED BLOOD COUNT 4.09 X10'6 (4.20-5.60); RED CELL DISTRIBUTION WIDTH 14.3 % (11.5-14.5); WHITE BLOOD COUNT 5.8 X10'3 (4.5-11.0)
[2020-01-14 06:43] LABS: ALANINE AMINOTRANSFERASE 18 U/L (12-78); ALBUMIN 3.5 G/DL (3.4-5.0); ALKALINE PHOSPHATASE 63 IU/L (46-116); ANION GAP 5 (8-16); ASPARTATE AMINO TRANSFERASE 15 U/L (10-37); BILIRUBIN,TOTAL 0.7 MG/DL (0.1-1.0); BLOOD UREA NITROGEN 16 MG/DL (7-18); BUN/CREATININE RATIO 20.3 (6.6-38.0); CALCIUM 8.7 MG/DL (8.5-10.1); CHLORIDE 106 MMOL/L (99-107); CREATININE 0.79 MG/DL (0.40-0.90); GLUCOSE 162 MG/DL (70-104); MAGNESIUM 1.9 MG/DL (1.5-2.4); POTASSIUM 4.8 MMOL/L (3.5-5.1); SODIUM 140 MMOL/L (135-145); TOTAL CARBON DIOXIDE 28.6 MMOL/L (24-32); TOTAL PROTEIN 6.9 G/DL (6.4-8.2); eGFR 71 ML/MIN
[2020-01-14] MEDS: heparin, porcine 5000 units/ml vial SQ SCH ×2 (07:08→19:38)
[2020-01-14] MEDS: docusate sod 100mg capsule PO SCH ×2 (07:08→19:37)
[2020-01-14] MEDS: baclofen 10mg tablet PO SCH ×3 (07:08→20:44)
[2020-01-14] MEDS: oxyCODONE IR 5mg (immed. release) tablet PO PRN ×4 (07:08→20:46)
[2020-01-14] MEDS: carvedilol 6.25mg tablet PO SCH ×3 (07:09→19:37)
[2020-01-14] MEDS: K and/or MAG REPLACEMENT MC SCH ×2 (07:13→20:00)
[2020-01-14] MEDS: nitroGLYCERIN 0.4mg/hour patch TD SCH (07:14)
--- NOTE | 2020-01-14 07:35 | NUR ---
Nevin DONG for high BP Dr. Sanchez "Re: Becky Foster in [id number]. her BP is 198/79, been high for a few hours. can I have a PRN order? thank you, Bri [facility] [phone]"
[2020-01-14] MEDS ORDERED: hydrALAZINE 20mg/ml inj. IV PRN (07:45)
[2020-01-14] MEDS: hydrALAZINE 20mg/ml inj. IV PRN (08:17)
[2020-01-14] MEDS: normal saline 1000ml 1,000 ML IV SCH ×2 (08:18→22:32)
[2020-01-14] MEDS ORDERED: LISI-604 PO (12:47)
[2020-01-14] MEDS ORDERED: CARV6.253 PO (12:47)
--- NOTE | 2020-01-14 14:07 | NUR ---
PAGED FOR HIGH BP DR. ERWIN "RE: NAD[place] [id number]. PT ASKED ME TO TAKE HER BP BEFORE DISCHARGE AND IT IS 200/91. SHE DOESN'T FEEL COMFORTABLE GOING HOME LIKE THAT, PLEASE CALL TO ADVISE, THANK YOU, LISA [facility] [phone]"
[2020-01-14] MEDS ORDERED: amLODIPine 5mg tablet PO ONE (14:15)
--- NOTE | 2020-01-14 14:19 | NUR ---
NORVASC 10MG GIVEN PER MD ORDER WILL CONTINUE TO MONITOR BP. PER DR. ERWIN HOLD DISCHARGE.
--- NOTE | 2020-01-14 18:00 | NUR ---
Patient in room PCU 3012. I have received report from Bri and had the opportunity to ask questions and assume patient care. Will closely monitor patient BP
--- NOTE | 2020-01-14 18:30 | NUR ---
Patient in room PCU 3012. I have received report from HERNAN Gregory and had the opportunity to ask questions and assume patient care.
[2020-01-14] MEDS: traZODone 50mg tablet PO SCH (20:44)
[2020-01-14] MEDS ORDERED: lisinopril 5mg tablet PO SCH (21:00)
[2020-01-14] MEDS: insulin glargine (Lantus) pen - multi-dose SQ SCH ×2 (21:00→22:30)
[2020-01-15] MEDS: hydrALAZINE 20mg/ml inj. IV PRN (02:07)
[2020-01-15] MEDS: oxyCODONE IR 5mg (immed. release) tablet PO PRN ×3 (02:07→12:59)
[2020-01-15 02:36] VITALS: BP 166/75
[2020-01-15 02:37] VITALS: BP 153/63
[2020-01-15 03:00] VITALS: BP 144/64
[2020-01-15] MEDS: normal saline 1000ml 1,000 ML IV SCH (04:18)
--- NOTE | 2020-01-15 05:03 | NUR ---
Patient is very anxious and agitated when her BP spikes. After BP meds given her BP decreases yet she is still very anxious and agitated. She states this has been going on for a while and she needs to know why.
[2020-01-15 05:58] LABS: ALANINE AMINOTRANSFERASE 14 U/L (12-78); ALBUMIN 3.5 G/DL (3.4-5.0); ALBUMIN/GLOBULIN RATIO 1.1 (1.1-1.5); ALKALINE PHOSPHATASE 60 IU/L (46-116); ANION GAP 8 (8-16); ASPARTATE AMINO TRANSFERASE 17 U/L (10-37); BILIRUBIN,TOTAL 0.8 MG/DL (0.1-1.0); BLOOD UREA NITROGEN 17 MG/DL (7-18); BUN/CREATININE RATIO 21.3 (6.6-38.0); CHLORIDE 106 MMOL/L (99-107); GLUCOSE 157 MG/DL (70-104); MAGNESIUM 1.6 MG/DL (1.5-2.4); POTASSIUM 3.9 MMOL/L (3.5-5.1); SODIUM 140 MMOL/L (135-145); TOTAL CARBON DIOXIDE 25.7 MMOL/L (24-32); TOTAL PROTEIN 6.6 G/DL (6.4-8.2); eGFR 70 ML/MIN
[2020-01-15 06:00] VITALS: BP 124/64
--- NOTE | 2020-01-15 06:00 | NUR ---
Patient in room PCU 3012. I have received report from Bertha BECERRA and had the opportunity to ask questions and assume patient care.
--- NOTE | 2020-01-15 06:00 | NUR ---
Problems reprioritized. Patient report given, questions answered & plan of care reviewed with Nicki[].
--- NOTE | 2020-01-15 06:11 | NUR ---
Problems reprioritized. Patient report given, questions answered & plan of care reviewed with HERNAN Mallory.
[2020-01-15 06:18] LABS: BASOPHILS % (AUTO) 0.6 % (0-1); EOSINOPHILS # (AUTO) 0.3 X10'3 (0-0.9); EOSINOPHILS % (AUTO) 4.4 % (0-6); HEMATOCRIT 36.6 % (35.0-45.0); HEMOGLOBIN 12.2 g/dl (12.0-16.0); LYMPHOCYTES # (AUTO) 2.1 X10'3 (1.1-4.8); MEAN CORPUSCULAR HEMOGLOBIN 29.9 PG (27.0-31.0); MEAN CORPUSCULAR HGB CONC 33.3 g/dL (33.0-36.5); MEAN CORPUSCULAR VOLUME 89.9 FL (78-98); MEAN PLATELET VOLUME 7.1 FL (7.4-10.4); MONOCYTES # (AUTO) 0.6 X10'3 (0-0.9); MONOCYTES % (AUTO) 10.7 % (2-12); NEUTROPHILS # (AUTO) 2.9 X10'3 (1.8-7.7); NEUTROPHILS % (AUTO) 49.3 % (42-75); PLATELET COUNT 258 X10'3 (140-440); RED BLOOD COUNT 4.07 X10'6 (4.20-5.60); RED CELL DISTRIBUTION WIDTH 14.1 % (11.5-14.5); WHITE BLOOD COUNT 5.9 X10'3 (4.5-11.0)
[2020-01-15] MEDS: carvedilol 6.25mg tablet PO SCH (07:59)
[2020-01-15] MEDS: baclofen 10mg tablet PO SCH ×2 (07:59→12:58)
[2020-01-15] MEDS: docusate sod 100mg capsule PO SCH (07:59)
[2020-01-15] MEDS: K and/or MAG REPLACEMENT MC SCH (08:00)
[2020-01-15] MEDS: nitroGLYCERIN 0.4mg/hour patch TD SCH (08:00)
[2020-01-15] MEDS: heparin, porcine 5000 units/ml vial SQ SCH (08:00)
[2020-01-15] MEDS ORDERED: AMLO10TA4 PO (09:12)
[2020-01-15 11:00] VITALS: BP 113/55
--- NOTE | 2020-01-15 12:54 | NUR ---
promotional table spacer PAGER ID: [phone] MESSAGE: TERELL 301Cristian Emanuel. Can I put in the discharge order for this patient? Thank you , Juany [phone]
--- NOTE | 2020-01-15 13:50 | NUR ---
Pt DC'd home with . Pt alert and oriented and vitals WNL upon DC. IV removed and canula intact. Tele-box removed and returned to tele-tech. DC paper work gone over with Pt, allowed Pt to ask questions concerning DC and then answer them. New prescriptions called into [facility] on [facility] [address] [facility] Pt has follow up appt with Dr. Reich on 02/06/20 at [address] Yung on 01/16/20 1325. New medications gone over with Pt including side affects Addendum: 01/15/20 at 1414 by Mohamud Andrade RN Pt DC'd home with . Pt alert and oriented and vitals WNL upon DC. IV removed and canula intact. Tele-box removed and returned to tele-tech. DC paper work gone over with Pt, allowed Pt to ask questions concerning DC and then answer them. New prescriptions called into [facility] pharmacy on [facility]. Pt has follow up appt with Dr. Reich on 02/06/20 at [address] Yung on 01/16/20 1325. New medications gone over with Pt including side affects, dosage and time to take. Pt's belongings gathered and sent with Pt. Pt wheeled down to lobby in wheelchair by aid, where Pt left in private vehicle with for home.
== END 2020-01-15 13:45 | disposition home or self-care (01) | DRG 303 ==
LOC: ER 14:06 → ED HOLD 16:18 → PCU 3S 18:05
PROVIDERS: ADMIT Internal Medicine; ATTEND Internal Medicine
DX: I25.110 Atherosclerotic heart disease of native coronary artery with unstable angina pectoris (principal); I47.1 Supraventricular tachycardia; I12.9 Hypertensive chronic kidney disease with stage 1 through stage 4 chronic kidney disease, or unspecified chronic kidney disease; M19.90 Unspecified osteoarthritis, unspecified site; G89.4 Chronic pain syndrome; G35 Multiple sclerosis; E11.22 Type 2 diabetes mellitus with diabetic chronic kidney disease; Z86.73 Personal history of transient ischemic attack (TIA), and cerebral infarction without residual deficits; N18.3 Chronic kidney disease, stage 3 (moderate); Z79.84 Long term (current) use of oral hypoglycemic drugs; Z79.899 Other long term (current) drug therapy; Z95.5 Presence of coronary angioplasty implant and graft
CPT/HCPCS: 36415; 71045; 80053; 80061; 82948; 83036; 83735; 84484; 85025; 87081; 93005; 93306; 96374; 97110; 97161; 97530; 97535; 99285; G0378; J0360; J1644; J1815; J2270; J2405; J7030

== ENCOUNTER 2020-01-17 18:17 | Inpatient (IN) | payer MEDICARE ==
[~2020-01-17] VITALS: Ht 165.1 cm; Wt 83.2 kg
[~2020-01-17 18:17] MED LIST changes: +AMLO10TA4 PO; +CARV6.253 PO
[2020-01-17 19:26] LABS: BASOPHILS % (AUTO) 0.6 % (0-1); EOSINOPHILS # (AUTO) 0.4 X10'3 (0-0.9); EOSINOPHILS % (AUTO) 6.2 % (0-6); HEMATOCRIT 35.1 % (35.0-45.0); HEMOGLOBIN 11.6 g/dl (12.0-16.0); LYMPHOCYTES # (AUTO) 1.8 X10'3 (1.1-4.8); LYMPHOCYTES % (AUTO) 29.8 % (21-51); MEAN CORPUSCULAR HEMOGLOBIN 29.9 PG (27.0-31.0); MEAN CORPUSCULAR VOLUME 90.6 FL (78-98); MEAN PLATELET VOLUME 7.3 FL (7.4-10.4); MONOCYTES # (AUTO) 0.6 X10'3 (0-0.9); MONOCYTES % (AUTO) 9.5 % (2-12); NEUTROPHILS # (AUTO) 3.3 X10'3 (1.8-7.7); NEUTROPHILS % (AUTO) 53.9 % (42-75); PLATELET COUNT 255 X10'3 (140-440); RED BLOOD COUNT 3.87 X10'6 (4.20-5.60); RED CELL DISTRIBUTION WIDTH 14.7 % (11.5-14.5); WHITE BLOOD COUNT 6.1 X10'3 (4.5-11.0)
[2020-01-17 19:46] LABS: ALANINE AMINOTRANSFERASE 25 U/L (12-78); ALBUMIN 3.9 G/DL (3.4-5.0); ALBUMIN/GLOBULIN RATIO 1.2 (1.1-1.5); ALKALINE PHOSPHATASE 65 IU/L (46-116); ANION GAP 9 (8-16); ASPARTATE AMINO TRANSFERASE 20 U/L (10-37); BILIRUBIN,TOTAL 0.4 MG/DL (0.1-1.0); BLOOD UREA NITROGEN 39 MG/DL (7-18); BUN/CREATININE RATIO 35.1 (6.6-38.0); CHLORIDE 106 MMOL/L (99-107); CREATININE 1.11 MG/DL (0.40-0.90); GLUCOSE 152 MG/DL (70-104); SODIUM 139 MMOL/L (135-145); TOTAL PROTEIN 7.1 G/DL (6.4-8.2); eGFR 48 ML/MIN
[2020-01-17] MEDS ORDERED: AMLO10TA13 PO (19:54)
[2020-01-17] MEDS ORDERED: CARV6.2553 PO (19:54)
[2020-01-17] MEDS ORDERED: oxyCODONE IR 5mg (immed. release) tablet PO ONE (22:40)
[2020-01-17] MEDS ORDERED: baclofen 10mg tablet PO ONE (22:40)
[2020-01-17] MEDS ORDERED: ondansetron/PF 4mg/2ml inj IV PRN (23:25)
[2020-01-17] MEDS ORDERED: oxyCODONE IR 5mg (immed. release) tablet PO PRN (23:25)
[2020-01-17] MEDS ORDERED: mag hydrox/Alum hydrox/simeth 30ml oral suspension PO PRN (23:25)
--- NOTE | 2020-01-18 00:30 | NUR ---
RECEIVED REPORT FROM HERNAN MORALES. WILL BRING PT TO ROOM SHORTLY. Addendum: 01/18/20 at 0031 by Desi Carolina RN Amended: Links added.
--- NOTE | 2020-01-18 00:35 | NUR ---
RECEIVED PT VIA [facility] TO ROOM 348B. ORIENTED TO ROOM AND ROUTINE, ALERT AND ORIENTED. Addendum: 01/18/20 at 0050 by Desi Carolina RN Amended: Links added.
[2020-01-18 00:50] VITALS: BP 153/76
--- NOTE | 2020-01-18 06:38 | NUR ---
Problems reprioritized. Patient report given, questions answered & plan of care reviewed with HERNAN Kinney.
--- NOTE | 2020-01-18 06:43 | NUR ---
Patient in room [facility]IL[facility] 348. I have received report from Nannette BECERRA and had the opportunity to ask questions and assume patient care.
[2020-01-18 07:00] VITALS: BP 142/61
[2020-01-18] MEDS: baclofen 10mg tablet PO SCH ×3 (07:03→20:00)
[2020-01-18] MEDS: carvedilol 6.25mg tablet PO SCH ×2 (07:39→22:05)
[2020-01-18] MEDS: ascorbic acid 500mg tablet PO SCH ×2 (07:41→20:00)
[2020-01-18] MEDS: lisinopril 5mg tablet PO SCH ×2 (07:41→22:06)
[2020-01-18] MEDS: glimepiride 1 MG tablet PO SCH (07:41)
[2020-01-18] MEDS: vitamin D (cholecalciferol) 1,000 unit tablet PO SCH (07:41)
[2020-01-18] MEDS: heparin, porcine 5000 units/ml vial SQ SCH ×2 (07:43→20:01)
[2020-01-18] MEDS: amLODIPine 5mg tablet PO SCH (08:00)
[2020-01-18] MEDS: oxyCODONE IR 5mg (immed. release) tablet PO PRN ×4 (10:26→22:04)
--- NOTE | 2020-01-18 10:40 | NUR ---
DM consult: Pt with A1c 7.3% recently admitted and seen by [facility] 01/12 for written and verbal DM and heart healthy nutrition therapy educations. At that education pt reports A1C down from 9.0% prior and has decreased total carb intake and no current questions/concerns. RD contact information was provided. No further education warranted at this time. Will continue to follow. Addendum: 01/18/20 at [address] Amended: Links added.
[2020-01-18 11:00] VITALS: BP 138/58
--- NOTE | 2020-01-18 18:45 | NUR ---
Patient in room DENILSON 348. I have received report from HERNAN Kinney and had the opportunity to ask questions and assume patient care. Addendum: 01/18/20 at 2014 by Desi Carolina RN Amended: Links added.
--- NOTE | 2020-01-18 18:52 | NUR ---
Problems reprioritized. Patient report given, questions answered & plan of care reviewed with Juany BECERRA.
[2020-01-18 19:30] VITALS: BP 108/50
[2020-01-18] MEDS: acetaminophen 325mg tablet PO PRN (20:01)
--- NOTE | 2020-01-18 20:08 | NUR ---
Pt had some sob and dizziness, concerned about b/p 108/50 refused b/p meds at this time, will monitor. zofran given for nausea. states nausea has decreased, pt is anxious, dizziness is better. 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 pt has hx of these symptoms d/t ms, states have been feeling this way off and on since Monday. Addendum: 01/18/20 at 2011 by Desi Carolina RN Amended: Links added.
[2020-01-18 21:22] VITALS: BP 163/69
--- NOTE | 2020-01-18 22:00 | NUR ---
pt up ad chaz, cecilio delgado, meds given. Addendum: 01/18/20 at 2228 by Desi Carolina RN Amended: Links added.
[2020-01-18 22:02] VITALS: BP 129/60
[2020-01-18] MEDS: traZODone 50mg tablet PO SCH (22:04)
[2020-01-19 03:57] VITALS: BP 168/80
[2020-01-19] MEDS: oxyCODONE IR 5mg (immed. release) tablet PO PRN ×5 (03:57→22:21)
[2020-01-19 04:05] VITALS: BP 168/76
--- NOTE | 2020-01-19 04:05 | NUR ---
pt c/o chest pain, mid chest, pressure, sharp, left side of face, left arm. pt has had cp off and on prior to admit, ekgs' have been neg, and troponins neg. pt feels this is worse than prior, ekg ordered, b/p 168/76. Josiane Carlton to er to notify Dr. Tomlin, no new orders. Addendum: 01/19/20 at 0433 by Desi Carolina RN Amended: Links added.
--- NOTE | 2020-01-19 04:33 | NUR ---
pain is decreasing, states feeling better, states pain was 06/06 decreased now. Addendum: 01/19/20 at 0435 by Desi Carolina RN Amended: Links added.
[2020-01-19 04:59] VITALS: BP 139/55
--- NOTE | 2020-01-19 06:34 | NUR ---
Problems reprioritized. Patient report given, questions answered & plan of care reviewed with HERNAN Shore. Addendum: 01/19/20 at 0635 by Desi Carolina RN Amended: Links added.
--- NOTE | 2020-01-19 06:35 | NUR ---
Patient in room [facility]IL[facility] 348. I have received report from HERNAN Harrington and had the opportunity to ask questions and assume patient care.
[2020-01-19 07:00] VITALS: BP 124/61
[2020-01-19] MEDS: ascorbic acid 500mg tablet PO SCH ×2 (07:36→20:51)
[2020-01-19] MEDS: vitamin D (cholecalciferol) 1,000 unit tablet PO SCH (07:37)
[2020-01-19] MEDS: glimepiride 1 MG tablet PO SCH (07:37)
[2020-01-19] MEDS: baclofen 10mg tablet PO SCH ×3 (07:37→20:52)
[2020-01-19] MEDS: carvedilol 6.25mg tablet PO SCH ×2 (07:39→20:00)
[2020-01-19] MEDS: heparin, porcine 5000 units/ml vial SQ SCH ×2 (07:40→20:51)
[2020-01-19] MEDS: magnesium hydroxide 30ml (MOM) UD suspension PO PRN (07:41)
[2020-01-19] MEDS: lisinopril 5mg tablet PO SCH ×2 (07:49→20:00)
[2020-01-19] MEDS: amLODIPine 5mg tablet PO SCH (07:49)
[2020-01-19 07:56] LABS: BASOPHILS % (AUTO) 0.8 % (0-1); EOSINOPHILS # (AUTO) 0.2 X10'3 (0-0.9); EOSINOPHILS % (AUTO) 4.9 % (0-6); HEMATOCRIT 35.6 % (35.0-45.0); HEMOGLOBIN 11.9 g/dl (12.0-16.0); LYMPHOCYTES # (AUTO) 1.6 X10'3 (1.1-4.8); LYMPHOCYTES % (AUTO) 33.2 % (21-51); MEAN CORPUSCULAR HEMOGLOBIN 30.4 PG (27.0-31.0); MEAN CORPUSCULAR HGB CONC 33.4 g/dL (33.0-36.5); MEAN CORPUSCULAR VOLUME 91.3 FL (78-98); MEAN PLATELET VOLUME 7.2 FL (7.4-10.4); MONOCYTES # (AUTO) 0.5 X10'3 (0-0.9); MONOCYTES % (AUTO) 11.1 % (2-12); NEUTROPHILS # (AUTO) 2.4 X10'3 (1.8-7.7); PLATELET COUNT 221 X10'3 (140-440); RED BLOOD COUNT 3.91 X10'6 (4.20-5.60); RED CELL DISTRIBUTION WIDTH 14.7 % (11.5-14.5); WHITE BLOOD COUNT 4.8 X10'3 (4.5-11.0)
[2020-01-19 08:00] LABS: ALBUMIN 3.4 G/DL (3.4-5.0); ANION GAP 3 (8-16); BLOOD UREA NITROGEN 21 MG/DL (7-18); CALCIUM 8.9 MG/DL (8.5-10.1); CHLORIDE 105 MMOL/L (99-107); CREATININE 0.84 MG/DL (0.40-0.90); GLUCOSE 138 MG/DL (70-104); MAGNESIUM 1.8 MG/DL (1.5-2.4); POTASSIUM 4.5 MMOL/L (3.5-5.1); SODIUM 137 MMOL/L (135-145); eGFR 66 ML/MIN
[2020-01-19 11:00] VITALS: BP 123/62
[2020-01-19] MEDS ORDERED: acetaminophen 325mg tablet PO PRN (14:15)
--- NOTE | 2020-01-19 18:35 | NUR ---
Problems reprioritized. Patient report given, questions answered & plan of care reviewed with Elisha RN.
[2020-01-19 20:00] VITALS: BP 127/60
[2020-01-19] MEDS: docusate sod 250mg capsule PO SCH (20:52)
[2020-01-19] MEDS: traZODone 50mg tablet PO SCH (20:52)
[2020-01-20] VITALS: BP 101/54
[2020-01-20] MEDS: oxyCODONE IR 5mg (immed. release) tablet PO PRN ×4 (03:17→19:22)
[2020-01-20 05:39] LABS: BASOPHILS % (AUTO) 0.8 % (0-1); EOSINOPHILS # (AUTO) 0.3 X10'3 (0-0.9); EOSINOPHILS % (AUTO) 5.1 % (0-6); HEMATOCRIT 33.3 % (35.0-45.0); HEMOGLOBIN 10.9 g/dl (12.0-16.0); LYMPHOCYTES # (AUTO) 2.2 X10'3 (1.1-4.8); LYMPHOCYTES % (AUTO) 42.8 % (21-51); MEAN CORPUSCULAR HGB CONC 32.8 g/dL (33.0-36.5); MEAN CORPUSCULAR VOLUME 91.3 FL (78-98); MEAN PLATELET VOLUME 7.4 FL (7.4-10.4); MONOCYTES # (AUTO) 0.5 X10'3 (0-0.9); MONOCYTES % (AUTO) 10.5 % (2-12); NEUTROPHILS # (AUTO) 2.1 X10'3 (1.8-7.7); NEUTROPHILS % (AUTO) 40.8 % (42-75); PLATELET COUNT 222 X10'3 (140-440); RED BLOOD COUNT 3.65 X10'6 (4.20-5.60); RED CELL DISTRIBUTION WIDTH 14.4 % (11.5-14.5); WHITE BLOOD COUNT 5.1 X10'3 (4.5-11.0)
[2020-01-20 05:57] LABS: ALBUMIN 3.4 G/DL (3.4-5.0); ANION GAP 7 (8-16); BLOOD UREA NITROGEN 30 MG/DL (7-18); BUN/CREATININE RATIO 26.3 (6.6-38.0); CALCIUM 8.9 MG/DL (8.5-10.1); CHLORIDE 102 MMOL/L (99-107); CREATININE 1.14 MG/DL (0.40-0.90); GLUCOSE 127 MG/DL (70-104); MAGNESIUM 2.1 MG/DL (1.5-2.4); SODIUM 136 MMOL/L (135-145); TOTAL CARBON DIOXIDE 26.7 MMOL/L (24-32); eGFR 46 ML/MIN
[2020-01-20 05:58] LABS: POTASSIUM 4.5 MMOL/L (3.5-5.1)
--- NOTE | 2020-01-20 06:45 | NUR ---
Patient in room [facility]IL[facility] 348. I have received report from HERNAN Tello and had the opportunity to ask questions and assume patient care.
[2020-01-20 08:00] VITALS: BP 131/62
[2020-01-20] MEDS: carvedilol 6.25mg tablet PO SCH ×2 (08:00→19:21)
[2020-01-20] MEDS: lisinopril 5mg tablet PO SCH ×2 (08:00→19:22)
[2020-01-20] MEDS: heparin, porcine 5000 units/ml vial SQ SCH ×2 (08:12→19:22)
[2020-01-20] MEDS: vitamin D (cholecalciferol) 1,000 unit tablet PO SCH (08:14)
[2020-01-20] MEDS: docusate sod 250mg capsule PO SCH ×2 (08:16→19:22)
[2020-01-20] MEDS: glimepiride 1 MG tablet PO SCH (08:16)
[2020-01-20] MEDS: ascorbic acid 500mg tablet PO SCH ×2 (08:16→19:21)
[2020-01-20] MEDS: baclofen 10mg tablet PO SCH ×3 (08:17→21:01)
[2020-01-20 11:00] VITALS: BP 136/60
[2020-01-20] MEDS: levetiracetam 250mg tablet PO SCH ×2 (11:26→19:21)
--- NOTE | 2020-01-20 12:35 | NUR ---
pt states she feels like she's going to tremor and blackout, like she's done before at home. And states she's having a harder time staying awake. Dr. Calderon aware and ordered Keppra. Med given.
[2020-01-20] MEDS ORDERED: GADOTERATE MEGLUMINE 7.5 MMOL/15 ML VIAL IV ONE (13:07)
--- NOTE | 2020-01-20 13:20 | NUR ---
Page sent to Dr. Calderon - pt very concerned and states she is "blacking out' more frequently today than normal. She's having a "hard time fighting it". Appears very sleepy. Awoke with sternal rub. Pola given @ 1126. Addendum: 01/20/20 at 1452 by Nena Mckeon RN Dr. Calderon at bedside. pt verbalized her concerns about blacking out. stated we have already given her the medicine to help with that (Pola). Plan to continue to monitor pt 1 more day then d/c tomorrow.
--- NOTE | 2020-01-20 18:15 | NUR ---
Patient in room [facility]IL[facility] 348. I have received report from HERNAN Barrett and had the opportunity to ask questions and assume patient care. Addendum: 01/20/20 at 1816 by Shari Champagne RN Amended: Links added.
--- NOTE | 2020-01-20 18:15 | NUR ---
Problems reprioritized. Patient report given, questions answered & plan of care reviewed with HERNAN Flores.
[2020-01-20] MEDS: magnesium hydroxide 30ml (MOM) UD suspension PO PRN (19:25)
[2020-01-20 20:00] VITALS: BP 154/73
[2020-01-20] MEDS: traZODone 50mg tablet PO SCH (21:00)
--- NOTE | 2020-01-20 21:15 | NUR ---
Report rec'd from cris Hardy , med/surg. transfer pt to Ortho. all questions asked and answered. Pt is taking diabetes medication and is not on our protocol. Hayley will call to discuss with Dr Sanchez because pt has now had two accuchecks above 160 in a row. awaiting transfer of pt.
[2020-01-20] MEDS ORDERED: glucagon, human recombinant 1mg kit SUBCUT PRN (21:30)
[2020-01-20] MEDS ORDERED: MESSAGE TO PHARMACY PO ONE (21:30)
[2020-01-20] MEDS ORDERED: insulin Lispro (HumaLOG) vial - multi-dose SQ SCH (21:30)
[2020-01-20] MEDS ORDERED: dextrose 50%-water 50ml dispensing syringe IV PRN ×2 (21:30)
[2020-01-20] MEDS ORDERED: dextrose ORAL solution 15 GM/59 ML bottle PO PRN ×2 (21:30)
--- NOTE | 2020-01-20 21:49 | NUR ---
Problems reprioritized. Patient report given, questions answered & plan of care reviewed with ashely Lomax transferred to [facility] with 2 staff and all belongings. not in acute distress.
[2020-01-21] MEDS: oxyCODONE IR 5mg (immed. release) tablet PO PRN ×3 (04:22→19:43)
[2020-01-21 06:00] VITALS: BP 163/69
[2020-01-21 06:10] LABS: BASOPHILS % (AUTO) 0.5 % (0-1); EOSINOPHILS # (AUTO) 0.2 X10'3 (0-0.9); EOSINOPHILS % (AUTO) 2.6 % (0-6); HEMOGLOBIN 11.7 g/dl (12.0-16.0); LYMPHOCYTES # (AUTO) 1.6 X10'3 (1.1-4.8); LYMPHOCYTES % (AUTO) 23.8 % (21-51); MEAN CORPUSCULAR HEMOGLOBIN 30.2 PG (27.0-31.0); MEAN CORPUSCULAR HGB CONC 33.5 g/dL (33.0-36.5); MEAN CORPUSCULAR VOLUME 90.2 FL (78-98); MEAN PLATELET VOLUME 7.4 FL (7.4-10.4); MONOCYTES # (AUTO) 0.7 X10'3 (0-0.9); MONOCYTES % (AUTO) 9.8 % (2-12); NEUTROPHILS # (AUTO) 4.3 X10'3 (1.8-7.7); NEUTROPHILS % (AUTO) 63.3 % (42-75); PLATELET COUNT 236 X10'3 (140-440); RED BLOOD COUNT 3.88 X10'6 (4.20-5.60); RED CELL DISTRIBUTION WIDTH 14.2 % (11.5-14.5); WHITE BLOOD COUNT 6.8 X10'3 (4.5-11.0)
[2020-01-21 06:21] LABS: ALBUMIN 3.4 G/DL (3.4-5.0); ANION GAP 7 (8-16); BLOOD UREA NITROGEN 32 MG/DL (7-18); BUN/CREATININE RATIO 38.6 (6.6-38.0); CALCIUM 8.7 MG/DL (8.5-10.1); CHLORIDE 104 MMOL/L (99-107); CREATININE 0.83 MG/DL (0.40-0.90); GLUCOSE 146 MG/DL (70-104); MAGNESIUM 2.1 MG/DL (1.5-2.4); POTASSIUM 4.4 MMOL/L (3.5-5.1); SODIUM 138 MMOL/L (135-145); TOTAL CARBON DIOXIDE 27.2 MMOL/L (24-32); eGFR 67 ML/MIN
--- NOTE | 2020-01-21 06:42 | NUR ---
Report given to cris Tellez.
[2020-01-21] MEDS: levetiracetam 250mg tablet PO SCH ×2 (08:05→19:45)
[2020-01-21] MEDS: docusate sod 250mg capsule PO SCH ×2 (08:05→19:45)
[2020-01-21] MEDS: baclofen 10mg tablet PO SCH ×3 (08:05→19:43)
[2020-01-21] MEDS: lisinopril 5mg tablet PO SCH ×2 (08:06→19:43)
[2020-01-21] MEDS: carvedilol 6.25mg tablet PO SCH ×2 (08:06→19:47)
[2020-01-21] MEDS: ascorbic acid 500mg tablet PO SCH ×2 (08:07→19:46)
[2020-01-21] MEDS: vitamin D (cholecalciferol) 1,000 unit tablet PO SCH (08:08)
[2020-01-21] MEDS: heparin, porcine 5000 units/ml vial SQ SCH ×2 (08:09→19:46)
[2020-01-21 10:00] VITALS: BP 139/64
--- NOTE | 2020-01-21 13:38 | NUR ---
Paged Devika from EEG re order for 24 hr tele. Waiting for report of earlier EEG today.
--- NOTE | 2020-01-21 17:21 | NUR ---
patient connected for extended time EEG, cardiac telemetry on.
[2020-01-21 18:00] VITALS: BP 152/95
--- NOTE | 2020-01-21 18:03 | NUR ---
Report to Julius BECERRA
[2020-01-21 20:00] VITALS: BP 113/59
[2020-01-21] MEDS ORDERED: insulin glargine (Lantus) pen - multi-dose SQ SCH (21:00)
[2020-01-21] MEDS: traZODone 50mg tablet PO SCH (21:27)
[2020-01-21 22:17] VITALS: BP 116/52
[2020-01-22] MEDS: oxyCODONE IR 5mg (immed. release) tablet PO PRN ×3 (00:03→12:18)
[2020-01-22] MEDS: acetaminophen 325mg tablet PO PRN (03:08)
--- NOTE | 2020-01-22 04:17 | NUR ---
Report Taken from Rosalinda BECERRA
[2020-01-22 06:00] VITALS: BP 146/54
[2020-01-22] MEDS: vitamin D (cholecalciferol) 1,000 unit tablet PO SCH (07:18)
[2020-01-22] MEDS: levetiracetam 250mg tablet PO SCH (07:18)
[2020-01-22] MEDS: ascorbic acid 500mg tablet PO SCH (07:18)
[2020-01-22] MEDS: baclofen 10mg tablet PO SCH ×2 (07:18→12:17)
[2020-01-22] MEDS: docusate sod 250mg capsule PO SCH (07:18)
[2020-01-22] MEDS: lisinopril 5mg tablet PO SCH (07:18)
[2020-01-22] MEDS: carvedilol 6.25mg tablet PO SCH (07:19)
[2020-01-22] MEDS: heparin, porcine 5000 units/ml vial SQ SCH (07:21)
[2020-01-22 08:21] LABS: BASOPHILS # (AUTO) 0.1 X10'3 (0-0.2); BASOPHILS % (AUTO) 0.9 % (0-1); EOSINOPHILS # (AUTO) 0.2 X10'3 (0-0.9); EOSINOPHILS % (AUTO) 4.3 % (0-6); HEMATOCRIT 38.2 % (35.0-45.0); HEMOGLOBIN 12.8 g/dl (12.0-16.0); LYMPHOCYTES # (AUTO) 2.4 X10'3 (1.1-4.8); MEAN CORPUSCULAR HEMOGLOBIN 30.1 PG (27.0-31.0); MEAN CORPUSCULAR HGB CONC 33.4 g/dL (33.0-36.5); MEAN PLATELET VOLUME 7.2 FL (7.4-10.4); MONOCYTES # (AUTO) 0.5 X10'3 (0-0.9); MONOCYTES % (AUTO) 9.7 % (2-12); NEUTROPHILS # (AUTO) 2.4 X10'3 (1.8-7.7); NEUTROPHILS % (AUTO) 42.1 % (42-75); PLATELET COUNT 263 X10'3 (140-440); RED BLOOD COUNT 4.24 X10'6 (4.20-5.60); RED CELL DISTRIBUTION WIDTH 14.1 % (11.5-14.5); WHITE BLOOD COUNT 5.6 X10'3 (4.5-11.0)
[2020-01-22 08:33] LABS: ALBUMIN 3.8 G/DL (3.4-5.0); ANION GAP 10 (8-16); BLOOD UREA NITROGEN 35 MG/DL (7-18); CALCIUM 9.1 MG/DL (8.5-10.1); CHLORIDE 103 MMOL/L (99-107); GLUCOSE 165 MG/DL (70-104); MAGNESIUM 2.1 MG/DL (1.5-2.4); POTASSIUM 4.8 MMOL/L (3.5-5.1); SODIUM 137 MMOL/L (135-145); TOTAL CARBON DIOXIDE 24.5 MMOL/L (24-32); eGFR 54 ML/MIN
[2020-01-22] MEDS ORDERED: LEVE250T PO (09:17)
[2020-01-22] MEDS ORDERED: bisacodyl 10mg suppository rectal RC STA (09:53)
[2020-01-22 10:00] VITALS: BP 91/49
--- NOTE | 2020-01-22 15:20 | NUR ---
Patient stable for discharge. Belongings gathered and sent home with patient. PIV removed, cannula intact.
== END 2020-01-22 15:08 | disposition home or self-care (01) | DRG 101 ==
LOC: ER 18:17 → ED HOLD 23:22 → OBSVTOIN 23:22 → SUR 3N 01-18 00:45 → ORTHO 4S 01-20 21:48
PROVIDERS: ADMIT Internal Medicine; ATTEND Internal Medicine
PROC: 4A00X4Z Measurement of Central Nervous Electrical Activity, External Approach (ICD-10-PCS; principal; 2020-01-21)
PROC: 4A00X4Z Measurement of Central Nervous Electrical Activity, External Approach (ICD-10-PCS; 2020-01-22)
DX: G40.89 Other seizures (principal); G35 Multiple sclerosis; I10 Essential (primary) hypertension; E11.40 Type 2 diabetes mellitus with diabetic neuropathy, unspecified; I25.10 Atherosclerotic heart disease of native coronary artery without angina pectoris; G89.29 Other chronic pain; Z79.84 Long term (current) use of oral hypoglycemic drugs; Z79.899 Other long term (current) drug therapy; Z80.1 Family history of malignant neoplasm of trachea, bronchus and lung; Z82.3 Family history of stroke; Z82.5 Family history of asthma and other chronic lower respiratory diseases; Z85.118 Personal history of other malignant neoplasm of bronchus and lung; Z86.73 Personal history of transient ischemic attack (TIA), and cerebral infarction without residual deficits; Z88.1 Allergy status to other antibiotic agents; Z88.8 Allergy status to other drugs, medicaments and biological substances
CPT/HCPCS: 36415; 70450; 70553; 71045; 80048; 80053; 82948; 83036; 83735; 84484; 85025; 87081; 93005; 95816; 95951; 96372; 96374; 97161; 97530; 99285; A9575; G0378; J1644; J1815; J2405

== ENCOUNTER 2020-01-22 17:03 | Emergency (ER) | payer MEDICARE ==
[~2020-01-22] VITALS: Ht 165.1 cm; Wt 83.2 kg
[~2020-01-22 17:03] MED LIST changes: +AMLO10TA13 PO; -AMLO10TA4 PO; -CARV6.253 PO; +CARV6.2553 PO; +LEVE250T PO
[2020-01-22 21:23] VITALS: BP 148/76
== END 2020-01-22 21:53 | disposition home or self-care (01) ==
LOC: ER 17:05
DX: G35 Multiple sclerosis (principal); I25.10 Atherosclerotic heart disease of native coronary artery without angina pectoris; I10 Essential (primary) hypertension; G89.29 Other chronic pain; Z98.61 Coronary angioplasty status; Z00.8 Encounter for other general examination; Z86.73 Personal history of transient ischemic attack (TIA), and cerebral infarction without residual deficits; Z90.49 Acquired absence of other specified parts of digestive tract; Z98.890 Other specified postprocedural states; Z88.8 Allergy status to other drugs, medicaments and biological substances; Z79.899 Other long term (current) drug therapy
CPT/HCPCS: 93005; 99284

== ENCOUNTER 2020-01-24 18:36 | Inpatient (IN) | payer MEDICARE ==
[~2020-01-24] VITALS: Ht 165.1 cm; Wt 83.0 kg
[2020-01-24 19:36] LABS: BASOPHILS % (AUTO) 0.7 % (0-1); EOSINOPHILS # (AUTO) 0.3 X10'3 (0-0.9); EOSINOPHILS % (AUTO) 5.5 % (0-6); HEMATOCRIT 35.6 % (35.0-45.0); HEMOGLOBIN 11.8 g/dl (12.0-16.0); LYMPHOCYTES % (AUTO) 31.8 % (21-51); MEAN CORPUSCULAR HEMOGLOBIN 30.6 PG (27.0-31.0); MEAN CORPUSCULAR HGB CONC 33.3 g/dL (33.0-36.5); MEAN CORPUSCULAR VOLUME 91.8 FL (78-98); MEAN PLATELET VOLUME 7.5 FL (7.4-10.4); MONOCYTES # (AUTO) 0.7 X10'3 (0-0.9); MONOCYTES % (AUTO) 10.9 % (2-12); NEUTROPHILS # (AUTO) 3.2 X10'3 (1.8-7.7); NEUTROPHILS % (AUTO) 51.1 % (42-75); PLATELET COUNT 272 X10'3 (140-440); RED BLOOD COUNT 3.88 X10'6 (4.20-5.60); RED CELL DISTRIBUTION WIDTH 14.5 % (11.5-14.5); WHITE BLOOD COUNT 6.2 X10'3 (4.5-11.0)
[2020-01-24 19:51] LABS: ALANINE AMINOTRANSFERASE 18 U/L (12-78); ALBUMIN 4.1 G/DL (3.4-5.0); ALBUMIN/GLOBULIN RATIO 1.2 (1.1-1.5); ALKALINE PHOSPHATASE 67 IU/L (46-116); ANION GAP 8 (8-16); ASPARTATE AMINO TRANSFERASE 17 U/L (10-37); BILIRUBIN,TOTAL 0.6 MG/DL (0.1-1.0); BLOOD UREA NITROGEN 68 MG/DL (7-18); BUN/CREATININE RATIO 31.2 (6.6-38.0); CALCIUM 9.3 MG/DL (8.5-10.1); CHLORIDE 100 MMOL/L (99-107); CREATININE 2.18 MG/DL (0.40-0.90); GLUCOSE 214 MG/DL (70-104); POTASSIUM 5.3 MMOL/L (3.5-5.1); SODIUM 133 MMOL/L (135-145); TOTAL CARBON DIOXIDE 24.8 MMOL/L (24-32); TOTAL PROTEIN 7.4 G/DL (6.4-8.2); eGFR 22 ML/MIN
[2020-01-24] MEDS ORDERED: normal saline 1000ML IV soln IVB ONE (20:40)
--- NOTE | 2020-01-24 20:47 | NUR ---
vo ekg, ordered ekg. at
[2020-01-24] MEDS ORDERED: LEVE500T PO (21:35)
[2020-01-25] VITALS (9 sets, daily range): BP systolic 104–173; BP diastolic 53–68
[2020-01-25] MEDS ORDERED: ondansetron/PF 4mg/2ml inj IV PRN (00:40)
[2020-01-25] MEDS ORDERED: acetaminophen 325mg tablet PO PRN (00:40)
[2020-01-25] MEDS ORDERED: mag hydrox/Alum hydrox/simeth 30ml oral suspension PO PRN (00:40)
[2020-01-25] MEDS ORDERED: magnesium hydroxide 30ml (MOM) UD suspension PO PRN (00:40)
[2020-01-25] MEDS ORDERED: amLODIPine 5mg tablet PO ONE (00:50)
[2020-01-25] MEDS ORDERED: amLODIPine 5mg tablet PO PRN (00:55)
[2020-01-25] MEDS ORDERED: amLODIPine 2.5mg tablet PO PRN (01:12)
[2020-01-25] MEDS: normal saline 1000ml 1,000 ML IV SCH ×3 (02:07→22:47)
[2020-01-25] MEDS: oxyCODONE IR 5mg (immed. release) tablet PO PRN ×4 (02:08→22:13)
[2020-01-25] MEDS ORDERED: baclofen 10mg tablet PO ONE (02:30)
--- NOTE | 2020-01-25 06:20 | NUR ---
Patient in room ORTHO 4011. I have received report from Emilie and had the opportunity to ask questions and assume patient care.
--- NOTE | 2020-01-25 06:34 | NUR ---
Problems reprioritized. Patient report given, questions answered & plan of care reviewed with HERNAN Pierre.
[2020-01-25] MEDS: glimepiride 1 MG tablet PO SCH (07:49)
[2020-01-25] MEDS: baclofen 10mg tablet PO SCH ×3 (07:50→20:33)
[2020-01-25] MEDS: levetiracetam 250mg tablet PO SCH ×2 (07:50→20:32)
[2020-01-25] MEDS: heparin, porcine 5000 units/ml vial SQ SCH ×2 (07:51→20:33)
[2020-01-25] MEDS ORDERED: carvedilol 6.25mg tablet PO SCH (08:00)
--- NOTE | 2020-01-25 10:46 | NUR ---
DM/cardiac consult: Pt with A1c 7.3% recently admitted and seen by [facility] 01/12 for written and verbal DM and heart healthy nutrition therapy educations. At that education pt reports A1C down from 9.0% prior and has decreased total carb intake and no current questions/concerns. RD contact information was provided. No further education warranted at this time. Will continue to follow. Addendum: 01/25/20 at [address] Amended: Links added.
[2020-01-25] MEDS ORDERED: magnesium 4gm in 100ml NS 100 ML IV PRN (10:50)
[2020-01-25] MEDS ORDERED: potassium CL 10mEq/100ml bag 100 ML IV PRN (10:50)
[2020-01-25] MEDS ORDERED: potassium Cl 20 mEq SR tablet PO PRN ×2 (10:50)
[2020-01-25] MEDS: K and/or MAG REPLACEMENT MC SCH ×2 (10:50→20:00)
[2020-01-25] MEDS ORDERED: magnesium Cl slow-release 64mg tablet PO PRN (10:50)
[2020-01-25] MEDS ORDERED: bisacodyl 10mg suppository rectal RC STA (12:18)
--- NOTE | 2020-01-25 18:12 | NUR ---
Problems reprioritized. Patient report given, questions answered & plan of care reviewed with Salina.
--- NOTE | 2020-01-25 18:15 | NUR ---
Patient in room ORTHO 4011. I have received report from Gabby BECERRA and had the opportunity to ask questions and assume patient care.
[2020-01-25] MEDS ORDERED: traZODone 50mg tablet PO SCH (21:00)
[2020-01-26] VITALS: BP 117/57
[2020-01-26] MEDS: normal saline 1000ml 1,000 ML IV SCH (02:51)
[2020-01-26] MEDS: oxyCODONE IR 5mg (immed. release) tablet PO PRN ×2 (03:56→10:14)
[2020-01-26 04:00] VITALS: BP 145/61
--- NOTE | 2020-01-26 06:20 | NUR ---
Problems reprioritized. Patient report given, questions answered & plan of care reviewed with Christina BECERRA.
--- NOTE | 2020-01-26 06:22 | NUR ---
received report from cris lizama
[2020-01-26 07:08] LABS: BASOPHILS % (AUTO) 0.6 % (0-1); EOSINOPHILS # (AUTO) 0.3 X10'3 (0-0.9); EOSINOPHILS % (AUTO) 5.5 % (0-6); HEMATOCRIT 34.2 % (35.0-45.0); HEMOGLOBIN 11.4 g/dl (12.0-16.0); LYMPHOCYTES % (AUTO) 42.1 % (21-51); MEAN CORPUSCULAR HEMOGLOBIN 30.6 PG (27.0-31.0); MEAN CORPUSCULAR HGB CONC 33.2 g/dL (33.0-36.5); MEAN CORPUSCULAR VOLUME 92.2 FL (78-98); MEAN PLATELET VOLUME 7.5 FL (7.4-10.4); MONOCYTES # (AUTO) 0.5 X10'3 (0-0.9); MONOCYTES % (AUTO) 9.7 % (2-12); NEUTROPHILS % (AUTO) 42.1 % (42-75); PLATELET COUNT 230 X10'3 (140-440); RED BLOOD COUNT 3.71 X10'6 (4.20-5.60); RED CELL DISTRIBUTION WIDTH 14.4 % (11.5-14.5); WHITE BLOOD COUNT 4.9 X10'3 (4.5-11.0)
[2020-01-26 07:16] LABS: ALANINE AMINOTRANSFERASE 15 U/L (12-78); ALBUMIN 3.3 G/DL (3.4-5.0); ALBUMIN/GLOBULIN RATIO 1.1 (1.1-1.5); ALKALINE PHOSPHATASE 53 IU/L (46-116); ANION GAP 4 (8-16); ASPARTATE AMINO TRANSFERASE 14 U/L (10-37); BILIRUBIN,TOTAL 0.5 MG/DL (0.1-1.0); BLOOD UREA NITROGEN 26 MG/DL (7-18); BUN/CREATININE RATIO 32.9 (6.6-38.0); CALCIUM 8.4 MG/DL (8.5-10.1); CHLORIDE 108 MMOL/L (99-107); CREATININE 0.79 MG/DL (0.40-0.90); GLUCOSE 120 MG/DL (70-104); MAGNESIUM 1.9 MG/DL (1.5-2.4); PHOSPHORUS 2.4 MG/DL (2.3-4.5); POTASSIUM 4.7 MMOL/L (3.5-5.1); SODIUM 138 MMOL/L (135-145); TOTAL PROTEIN 6.2 G/DL (6.4-8.2); eGFR 71 ML/MIN
[2020-01-26] MEDS: K and/or MAG REPLACEMENT MC SCH (07:44)
[2020-01-26] MEDS: levetiracetam 250mg tablet PO SCH (07:55)
[2020-01-26] MEDS: glimepiride 1 MG tablet PO SCH (07:55)
[2020-01-26] MEDS: baclofen 10mg tablet PO SCH ×2 (07:56→13:10)
[2020-01-26] MEDS: heparin, porcine 5000 units/ml vial SQ SCH (07:58)
[2020-01-26] MEDS ORDERED: AMLO2.5T5 PO (10:40)
[2020-01-26 11:00] VITALS: BP 138/57
--- NOTE | 2020-01-26 15:38 | NUR ---
pt d/c with instructions, understanding of instructions and w/all belongings in wheelchair to private vehicle to go home and f/u w/pcp
[2020-01-26] MEDS ORDERED: AMLO5TAB16 PO (17:49)
--- NOTE | 2020-01-28 12:41 | NUR ---
Case Management DC follow up: Spoke to pt via telephone. s/p: SOB, labile BP. Reports:"doing ok, still symptomatic", intermittently. Compliant w/DC after care orders. Denies: acute/emergent SOB, resp distress, acute/persistent CP, BENTLEY, blurry vision, N/V, emergent general pain, abd tenderness or distention, fever, unexplained bruising, bleeding. States uses 4WW to steady, lying down most of day.States after getting home from hospital 01/26/20 threw up dark, mucousy. Has not had NV since. had to do enema to produce BM, and is now having BM. Takes homeopathic stool softner. Verbalizes understanding of s/s that would warrant 9-/ER visit for further evaluation. Verbalizes understanding of new Rx & why prescribed/holding off on amlodipine until appt w/PCP; resuming current Rx as ordered, no ase noted r/t polypharmacy. Acknowledges need to follow-up/keep appts w/PCP/Dilshad 01/28/20 afternoon today to discuss Rx, 24 hr urine collection results, Geodesist/Damir/1-2 weeks/will call to confirm. Pt hopes BP is under control and is able to undergo scheduled back surgery 02/25/20 at [facility]. Questions answered, needs met at DC. No further questions at this time.
== END 2020-01-26 15:20 | disposition home or self-care (01) | DRG 640 ==
LOC: ER 18:37 → UNDOADMIN 01-25 00:38 → ED HOLD 01-25 00:38 → ORTHO 4S 01-25 01:30
PROVIDERS: ADMIT Internal Medicine; ATTEND Family Medicine
DX: E86.0 Dehydration (principal); N17.0 Acute kidney failure with tubular necrosis; E11.9 Type 2 diabetes mellitus without complications; F41.9 Anxiety disorder, unspecified; G35 Multiple sclerosis; G40.909 Epilepsy, unspecified, not intractable, without status epilepticus; G89.4 Chronic pain syndrome; I10 Essential (primary) hypertension; K59.00 Constipation, unspecified; I25.10 Atherosclerotic heart disease of native coronary artery without angina pectoris; Z80.1 Family history of malignant neoplasm of trachea, bronchus and lung; Z82.3 Family history of stroke; Z82.5 Family history of asthma and other chronic lower respiratory diseases; Z86.73 Personal history of transient ischemic attack (TIA), and cerebral infarction without residual deficits; Z88.8 Allergy status to other drugs, medicaments and biological substances; Z98.61 Coronary angioplasty status; Z81.1 Family history of alcohol abuse and dependence; Z79.899 Other long term (current) drug therapy
CPT/HCPCS: 36415; 71045; 80053; 82948; 83735; 83835; 84100; 84484; 85025; 87081; 93005; 96360; 97110; 97116; 97161; 97530; 99285; G0378; J1644; J7030

== ENCOUNTER 2020-01-31 15:35 | Inpatient (IN) | payer MEDICARE ==
[~2020-01-31] VITALS: Ht 165.1 cm; Wt 68.2 kg
[~2020-01-31 15:35] MED LIST changes: -AMLO10TA13 PO; +AMLO5TAB16 PO; -LEVE250T PO; +LEVE500T PO; -LISI-604 PO
[2020-01-31 16:17] LABS: BASOPHILS % (AUTO) 0.7 % (0-1); EOSINOPHILS # (AUTO) 0.3 X10'3 (0-0.9); EOSINOPHILS % (AUTO) 4.5 % (0-6); HEMATOCRIT 33.5 % (35.0-45.0); HEMOGLOBIN 11.3 g/dl (12.0-16.0); LYMPHOCYTES # (AUTO) 1.4 X10'3 (1.1-4.8); LYMPHOCYTES % (AUTO) 24.5 % (21-51); MEAN CORPUSCULAR HEMOGLOBIN 30.5 PG (27.0-31.0); MEAN CORPUSCULAR HGB CONC 33.8 g/dL (33.0-36.5); MEAN CORPUSCULAR VOLUME 90.4 FL (78-98); MEAN PLATELET VOLUME 7.1 FL (7.4-10.4); MONOCYTES # (AUTO) 0.5 X10'3 (0-0.9); MONOCYTES % (AUTO) 8.9 % (2-12); NEUTROPHILS # (AUTO) 3.6 X10'3 (1.8-7.7); NEUTROPHILS % (AUTO) 61.4 % (42-75); PLATELET COUNT 236 X10'3 (140-440); RED BLOOD COUNT 3.71 X10'6 (4.20-5.60); RED CELL DISTRIBUTION WIDTH 13.9 % (11.5-14.5); WHITE BLOOD COUNT 5.8 X10'3 (4.5-11.0)
[2020-01-31 16:44] LABS: ALANINE AMINOTRANSFERASE 22 U/L (12-78); ALBUMIN 3.8 G/DL (3.4-5.0); ALBUMIN/GLOBULIN RATIO 1.3 (1.1-1.5); ALKALINE PHOSPHATASE 59 IU/L (46-116); ANION GAP 9 (8-16); ASPARTATE AMINO TRANSFERASE 15 U/L (10-37); BILIRUBIN,TOTAL 0.4 MG/DL (0.1-1.0); BLOOD UREA NITROGEN 24 MG/DL (7-18); CALCIUM 9.3 MG/DL (8.5-10.1); CHLORIDE 105 MMOL/L (99-107); GLUCOSE 185 MG/DL (70-104); POTASSIUM 4.5 MMOL/L (3.5-5.1); SODIUM 140 MMOL/L (135-145); TOTAL CARBON DIOXIDE 26.5 MMOL/L (24-32); TOTAL PROTEIN 6.8 G/DL (6.4-8.2); eGFR 54 ML/MIN
--- NOTE | 2020-01-31 17:00 | NUR ---
Aiken at bedside evaluating pt, vs updates, pt in no apparent distress
--- NOTE | 2020-01-31 17:26 | NUR ---
UPDATED PT MED REC FOR BEING ADMITTED, PT PROVIDED WITH A WARM BLANKET AND UPDATED PT ON PLAN OF CARE
[2020-01-31] MEDS ORDERED: AMLO5TAB PO (17:58)
[2020-01-31] MEDS ORDERED: [UNRECOGNIZED DRUG - OTHER] PO (17:58)
[2020-01-31] MEDS ORDERED: LISI-604 PO (17:58)
--- NOTE | 2020-01-31 18:53 | NUR ---
PAGED DR. KERR 2ND TIME AT 18:53
[2020-01-31] MEDS: K and/or MAG REPLACEMENT MC SCH (20:00)
[2020-01-31] MEDS ORDERED: bisacodyl 10mg suppository rectal RC PRN (20:00)
[2020-01-31] MEDS ORDERED: metoclopramide 5 mg/ml inj IV PRN (20:00)
[2020-01-31] MEDS ORDERED: potassium Cl 20 mEq SR tablet PO PRN ×2 (20:00)
[2020-01-31] MEDS ORDERED: mag hydrox/Alum hydrox/simeth 30ml oral suspension PO PRN (20:00)
[2020-01-31] MEDS ORDERED: magnesium 2GM in 50ml NS 50 ML IV PRN (20:00)
[2020-01-31] MEDS ORDERED: acetaminophen 325mg tablet PO PRN (20:00)
[2020-01-31] MEDS ORDERED: magnesium 4gm in 100ml NS 100 ML IV PRN (20:00)
[2020-01-31] MEDS ORDERED: magnesium Cl slow-release 64mg tablet PO PRN (20:00)
[2020-01-31] MEDS ORDERED: ondansetron/PF 4mg/2ml inj IV PRN (20:00)
[2020-01-31] MEDS ORDERED: magnesium hydroxide 30ml (MOM) UD suspension PO PRN (20:00)
[2020-01-31] MEDS ORDERED: nitroGLYCERIN 0.4mg SUBLingual tab SL PRN (20:00)
[2020-01-31] MEDS ORDERED: morphine 2 MG/ML inj. syringe IV PRN (20:00)
[2020-01-31] MEDS ORDERED: potassium CL 10mEq/100ml bag 100 ML IV PRN ×2 (20:00)
[2020-01-31] MEDS ORDERED: temazepam 15mg capsule PO PRN (21:00)
[2020-01-31 21:50] VITALS: BP 164/65
[2020-01-31] MEDS: baclofen 10mg tablet PO SCH (22:22)
[2020-01-31] MEDS: traZODone 50mg tablet PO SCH (22:23)
[2020-01-31] MEDS: normal saline 1000ml 1,000 ML IV SCH (22:23)
[2020-01-31] MEDS: oxyCODONE IR 5mg (immed. release) tablet PO PRN (22:26)
--- NOTE | 2020-01-31 22:53 | NUR ---
Page Sent PAGER ID: [phone] MESSAGE: pt in [id number] Becky Foster 79 y/o female here for angina, her BP is 164/65, has lisinopril and amlodipine ordered for tomorrow 0800 can we get something for now? And pt is a diabetic can we put her on hyper/hypoglycemic protocol? -Elder [phone]
[2020-01-31] MEDS ORDERED: dextrose ORAL solution 15 GM/59 ML bottle PO PRN ×2 (22:55)
[2020-01-31] MEDS ORDERED: MESSAGE TO PHARMACY PO ONE (22:55)
[2020-01-31] MEDS ORDERED: dextrose 50%-water 50ml dispensing syringe IV PRN ×2 (22:55)
[2020-01-31] MEDS ORDERED: insulin Lispro (HumaLOG) vial - multi-dose SQ SCH (22:55)
[2020-01-31] MEDS ORDERED: hyDRALAzine 10mg tablet PO ONE (22:55)
[2020-01-31] MEDS ORDERED: glucagon, human recombinant 1mg kit SUBCUT PRN (22:55)
[2020-02-01] VITALS (11 sets, daily range): BP systolic 114–148; BP diastolic 49–96
[2020-02-01] MEDS: oxyCODONE IR 5mg (immed. release) tablet PO PRN ×5 (03:23→20:10)
--- NOTE | 2020-02-01 06:19 | NUR ---
Problems reprioritized. Patient report given, questions answered & plan of care reviewed with Melchor BECERRA.
[2020-02-01 06:25] LABS: HEMATOCRIT 37.4 % (35.0-45.0); HEMOGLOBIN 12.4 g/dl (12.0-16.0); MEAN CORPUSCULAR HEMOGLOBIN 30.3 PG (27.0-31.0); MEAN CORPUSCULAR HGB CONC 33.1 g/dL (33.0-36.5); MEAN CORPUSCULAR VOLUME 91.6 FL (78-98); MEAN PLATELET VOLUME 7.5 FL (7.4-10.4); PLATELET COUNT 247 X10'3 (140-440); RED BLOOD COUNT 4.09 X10'6 (4.20-5.60); RED CELL DISTRIBUTION WIDTH 14.2 % (11.5-14.5); WHITE BLOOD COUNT 5.9 X10'3 (4.5-11.0)
--- NOTE | 2020-02-01 06:30 | NUR ---
Patient in room PCU 3027. I have received report from Elder BECERRA and had the opportunity to ask questions and assume patient care.
[2020-02-01 06:42] LABS: ALBUMIN 3.7 G/DL (3.4-5.0); ANION GAP 10 (8-16); BLOOD UREA NITROGEN 20 MG/DL (7-18); BUN/CREATININE RATIO 25.3 (6.6-38.0); CALCIUM 8.7 MG/DL (8.5-10.1); CHLORIDE 107 MMOL/L (99-107); CREATININE 0.79 MG/DL (0.40-0.90); GLUCOSE 161 MG/DL (70-104); MAGNESIUM 1.9 MG/DL (1.5-2.4); SODIUM 144 MMOL/L (135-145); TOTAL CARBON DIOXIDE 27.5 MMOL/L (24-32); eGFR 71 ML/MIN
[2020-02-01] MEDS: K and/or MAG REPLACEMENT MC SCH ×2 (06:49→20:00)
[2020-02-01] MEDS: amLODIPine 5mg tablet PO SCH (07:17)
[2020-02-01] MEDS: levetiracetam 250mg tablet PO SCH ×2 (07:17→20:09)
[2020-02-01] MEDS: baclofen 10mg tablet PO SCH ×3 (07:17→20:09)
[2020-02-01] MEDS: carvedilol 6.25mg tablet PO SCH ×2 (07:18→20:09)
[2020-02-01] MEDS: lisinopril 5mg tablet PO SCH ×2 (07:18→20:10)
[2020-02-01] MEDS ORDERED: LIDOcaine/PRILOcaine 5gm cream TP ONE (07:25)
[2020-02-01] MEDS ORDERED: midazolam 2 mg/2 ml injection ONE (07:43)
[2020-02-01] MEDS ORDERED: verapamil 2.5 mg/ml inj IV ONE (07:43)
[2020-02-01] MEDS ORDERED: nitroGLYCERIN-Tridil 50MG/D5W 250 ML IV ONE (07:43)
[2020-02-01] MEDS ORDERED: LIDOcaine 1% (10mg/ml)w/preservative injection 20ml MDV ONE (07:44)
[2020-02-01] MEDS ORDERED: iohexol 350MG/ML 100ml bottle IV ONE (07:44)
[2020-02-01] MEDS ORDERED: iohexol 350 MG/ML 50ML vial IV ONE (07:44)
[2020-02-01] MEDS ORDERED: heparin 1,000unit/ml 10ml vial 10 ML ONE (07:44)
[2020-02-01] MEDS ORDERED: fentaNYL/PF 50MCG/1 ML 2ML syringe ONE (07:44)
[2020-02-01 09:11] LABS: ISTAT HGB ART 11.2 g/dl (12.0-16.0); ISTAT Hct ART 33 %PCV (35-48); ISTAT O2 SATURATION ARTERIAL 97 % (95-98); ISTAT SOURCE ART
[2020-02-01] MEDS: normal saline 1000ml 1,000 ML IV SCH ×5 (09:35→22:55)
--- NOTE | 2020-02-01 09:38 | NUR ---
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 thanks favio [phone]
[2020-02-01] MEDS: morphine 2 MG/ML inj. syringe IV PRN (09:46)
[2020-02-01 09:55] LABS: CHOL/HDL RATIO 4.1 (0.00-4.99); CHOLESTEROL 243 MG/DL (0-200); HDL CHOLESTEROL 60 MG/DL (35-60); LDL CHOLESTEROL 148 MG/DL (50-100); TRIGLYCERIDES 162 MG/DL (20-135)
--- NOTE | 2020-02-01 10:16 | NUR ---
DM consult: Pt with A1c 7.2% recently admitted and seen by [facility] 01/12 with A1c 7.3% for written and verbal DM and heart healthy nutrition therapy educations. At that education pt reports A1C down from 9.0% prior and has decreased total carb intake and no current questions/concerns. RD contact information was provided. No further education warranted at this time. Will continue to follow. Addendum: 02/01/20 at [address] Amended: Links added.
--- NOTE | 2020-02-01 10:40 | NUR ---
PAGER ID: [phone] MESSAGE: [id number] Becky Foster: REGINA Reich will consult with patient later in regards to an artery that meets criteria for a stent but will not relieve the pain. Thanks Melchor
--- NOTE | 2020-02-01 16:23 | NUR ---
Discuss pain management with dr. schwarz, patient has chronic pain due to cervical radiculopathy and requires prn oxycontin prn 4 hours atc, dr. schwarz does not want to add another pain medication in fear of patient building tolerence to pain medication and will require more meds.
--- NOTE | 2020-02-01 18:27 | NUR ---
Problems reprioritized. Patient report given, questions answered & plan of care reviewed with Manish RN.
[2020-02-01] MEDS: traZODone 50mg tablet PO SCH (20:10)
[2020-02-01] MEDS ORDERED: insulin glargine (Lantus) pen - multi-dose SQ SCH (21:00)
[2020-02-02 03:00] VITALS: BP 148/77
[2020-02-02] MEDS: oxyCODONE IR 5mg (immed. release) tablet PO PRN ×2 (05:49→11:47)
[2020-02-02] MEDS: normal saline 1000ml 1,000 ML IV SCH ×2 (05:49→12:15)
[2020-02-02 06:00] VITALS: BP 135/62
--- NOTE | 2020-02-02 06:00 | NUR ---
Patient in room PCU 3021. I have received report from Manish and had the opportunity to ask questions and assume patient care.
[2020-02-02 06:11] LABS: HEMATOCRIT 33.1 % (35.0-45.0); HEMOGLOBIN 11.1 g/dl (12.0-16.0); MEAN CORPUSCULAR HEMOGLOBIN 30.4 PG (27.0-31.0); MEAN CORPUSCULAR HGB CONC 33.7 g/dL (33.0-36.5); MEAN CORPUSCULAR VOLUME 90.3 FL (78-98); MEAN PLATELET VOLUME 7.2 FL (7.4-10.4); PLATELET COUNT 224 X10'3 (140-440); RED BLOOD COUNT 3.66 X10'6 (4.20-5.60); RED CELL DISTRIBUTION WIDTH 13.5 % (11.5-14.5); WHITE BLOOD COUNT 7.1 X10'3 (4.5-11.0)
--- NOTE | 2020-02-02 06:26 | NUR ---
Problems reprioritized. Patient report given, questions answered & plan of care reviewed with Raven BECERRA.
--- NOTE | 2020-02-02 06:33 | NUR ---
Patient in room PCU 3021. I have received report from Manish BECERRA and had the opportunity to ask questions and assume patient care. 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
[2020-02-02 06:35] LABS: ALBUMIN 3.2 G/DL (3.4-5.0); ANION GAP 9 (8-16); BLOOD UREA NITROGEN 14 MG/DL (7-18); BUN/CREATININE RATIO 18.9 (6.6-38.0); CALCIUM 8.4 MG/DL (8.5-10.1); CHLORIDE 106 MMOL/L (99-107); CREATININE 0.74 MG/DL (0.40-0.90); GLUCOSE 180 MG/DL (70-104); MAGNESIUM 1.8 MG/DL (1.5-2.4); SODIUM 139 MMOL/L (135-145); TOTAL CARBON DIOXIDE 24.1 MMOL/L (24-32); eGFR 76 ML/MIN
[2020-02-02] MEDS: K and/or MAG REPLACEMENT MC SCH (08:00)
[2020-02-02] MEDS: levetiracetam 250mg tablet PO SCH (08:47)
[2020-02-02] MEDS: carvedilol 6.25mg tablet PO SCH (08:47)
[2020-02-02] MEDS: baclofen 10mg tablet PO SCH ×2 (08:47→13:19)
[2020-02-02] MEDS: lisinopril 5mg tablet PO SCH (08:48)
[2020-02-02] MEDS: amLODIPine 5mg tablet PO SCH (08:48)
[2020-02-02] MEDS: morphine 2 MG/ML inj. syringe IV PRN (08:57)
--- NOTE | 2020-02-02 09:25 | NUR ---
Patient c/o 04/06 migraine. Morphine was administered. Patient had a complaint of chest pain at this time. A stat ekg was ordered and obtained. EKG showed no changes.
--- NOTE | 2020-02-02 09:39 | NUR ---
Patient was c/o migraine 04/06 was given morphine and then said she was having chest pain. Stat EKG was ordered but the patient has declined to take a nitro at this time. Patient said the morphine has helped and she will use the call light if she feels like she needs the nitro tablet. EKG showed no changes from the previous and will be shown to the hospitalist.
--- NOTE | 2020-02-02 10:24 | NUR ---
Spoke with Dr. Blank at bedside, instructed to walk patient with RN.
[2020-02-02 11:00] VITALS: BP 125/57
--- NOTE | 2020-02-02 12:51 | NUR ---
PAGER ID: [phone] MESSAGE: [id number] Cristian. Patient has new c/o severe right eye pain associated with her MS. She has experienced this before. She would like you to be aware. Please advise. [id number] Yulissa
--- NOTE | 2020-02-02 13:07 | NUR ---
Spoke with Dr. Blank he is aware of her severe eye pain and he would like to continue with discharge. No new orders
--- NOTE | 2020-02-02 14:58 | NUR ---
Patient was discharged home and reviewed all discharge information and education in packet before signing. Patient left with all belongings, PIV was removed with cannula intact, tele monitoring was d/c'd, no new medications, and will schedule own follow up as discussed in the discharge paperwork. Patient was wheeled down by staff and left via private vehicle.
--- NOTE | 2020-02-02 15:46 | NUR ---
[place] documentation: I have reviewed and agree with interventions, assessments performed and documented by Yulissa BECERRA. [place] Medication Administration: For this medication-pass time frame, all medication were reviewed, dispensed, administered and documented per hospital policy by Yulissa BECERRA.
== END 2020-02-02 14:58 | disposition home or self-care (01) | DRG 74 ==
LOC: ER 15:35 → ED HOLD 19:59 → PCU 3S 21:50
PROVIDERS: ADMIT Family Medicine; ATTEND Family Medicine
PROC: 4A023N8 Measurement of Cardiac Sampling and Pressure, Bilateral, Percutaneous Approach (ICD-10-PCS; principal; 2020-02-01)
PROC: B2111ZZ Fluoroscopy of Multiple Coronary Arteries using Low Osmolar Contrast (ICD-10-PCS; 2020-02-01)
PROC: B2151ZZ Fluoroscopy of Left Heart using Low Osmolar Contrast (ICD-10-PCS; 2020-02-01)
DX: M54.12 Radiculopathy, cervical region (principal); I00 Rheumatic fever without heart involvement; G35 Multiple sclerosis; E78.5 Hyperlipidemia, unspecified; M54.30 Sciatica, unspecified side; G40.909 Epilepsy, unspecified, not intractable, without status epilepticus; F41.9 Anxiety disorder, unspecified; Z88.1 Allergy status to other antibiotic agents; Z88.5 Allergy status to narcotic agent; Z88.8 Allergy status to other drugs, medicaments and biological substances; I10 Essential (primary) hypertension; E11.9 Type 2 diabetes mellitus without complications; Z80.1 Family history of malignant neoplasm of trachea, bronchus and lung; Z86.73 Personal history of transient ischemic attack (TIA), and cerebral infarction without residual deficits; Z90.49 Acquired absence of other specified parts of digestive tract; G89.29 Other chronic pain; Z87.440 Personal history of urinary (tract) infections; Z95.5 Presence of coronary angioplasty implant and graft; I25.10 Atherosclerotic heart disease of native coronary artery without angina pectoris
CPT/HCPCS: 36415; 71045; 80048; 80053; 80061; 82803; 82948; 83036; 83735; 84484; 85014; 85025; 85027; 87081; 93005; 93460; 99152; 99153; 99285; A4620; A5120; A6258; C1769; C1894; G0378; J1644; J1815; J2001; J2250; J2270; J3010; J3490; J7030; Q9967

== ENCOUNTER 2020-05-17 17:43 | Emergency (ER) | payer MEDICARE ==
[~2020-05-17] VITALS: Ht 165.1 cm; Wt 78.4 kg
[~2020-05-17 17:43] MED LIST changes: +AMLO5TAB PO; -AMLO5TAB16 PO; +LISI-604 PO; +[UNRECOGNIZED DRUG - OTHER] PO
[2020-05-17] MEDS ORDERED: oxyCODONE IR 5mg (immed. release) tablet PO ONE (19:25)
[2020-05-17 21:56] LABS: BASOPHILS # (AUTO) 0.1 X10'3 (0-0.2); BASOPHILS % (AUTO) 0.9 % (0-1); EOSINOPHILS # (AUTO) 0.4 X10'3 (0-0.9); EOSINOPHILS % (AUTO) 4.8 % (0-6); HEMATOCRIT 25.7 % (35.0-45.0); HEMOGLOBIN 8.7 g/dl (12.0-16.0); LYMPHOCYTES # (AUTO) 1.7 X10'3 (1.1-4.8); MEAN CORPUSCULAR HEMOGLOBIN 31.1 PG (27.0-31.0); MEAN CORPUSCULAR HGB CONC 33.8 g/dL (33.0-36.5); MEAN PLATELET VOLUME 6.5 FL (7.4-10.4); MONOCYTES # (AUTO) 0.7 X10'3 (0-0.9); MONOCYTES % (AUTO) 9.7 % (2-12); NEUTROPHILS # (AUTO) 4.8 X10'3 (1.8-7.7); NEUTROPHILS % (AUTO) 62.6 % (42-75); PLATELET COUNT 473 X10'3 (140-440); RED BLOOD COUNT 2.79 X10'6 (4.20-5.60); RED CELL DISTRIBUTION WIDTH 14.2 % (11.5-14.5); WHITE BLOOD COUNT 7.6 X10'3 (4.5-11.0)
[2020-05-17 22:14] LABS: ALANINE AMINOTRANSFERASE 23 U/L (12-78); ALBUMIN 3.2 G/DL (3.4-5.0); ALBUMIN/GLOBULIN RATIO 0.9 (1.1-1.5); ALKALINE PHOSPHATASE 96 IU/L (46-116); ANION GAP 5 (8-16); ASPARTATE AMINO TRANSFERASE 21 U/L (10-37); BILIRUBIN,TOTAL 0.4 MG/DL (0.1-1.0); BLOOD UREA NITROGEN 19 MG/DL (7-18); BUN/CREATININE RATIO 19.8 (6.6-38.0); CHLORIDE 102 MMOL/L (99-107); CREATININE 0.96 MG/DL (0.40-0.90); GLUCOSE 127 MG/DL (70-104); POTASSIUM 4.3 MMOL/L (3.5-5.1); SODIUM 137 MMOL/L (135-145); TOTAL CARBON DIOXIDE 30.2 MMOL/L (24-32); TOTAL PROTEIN 6.8 G/DL (6.4-8.2); eGFR 56 ML/MIN
--- NOTE | 2020-05-17 22:40 | NUR ---
EDP at bedside performing fecal disimpaction. Pt. tolerating procedure well. Fleet enema to be administered after.
[2020-05-17 23:33] VITALS: BP 156/67
== END 2020-05-17 23:35 | disposition home or self-care (01) ==
LOC: ER 17:43
DX: K59.00 Constipation, unspecified (principal); G35 Multiple sclerosis; I25.10 Atherosclerotic heart disease of native coronary artery without angina pectoris; I10 Essential (primary) hypertension; E11.9 Type 2 diabetes mellitus without complications; G89.29 Other chronic pain; Z86.73 Personal history of transient ischemic attack (TIA), and cerebral infarction without residual deficits; Z98.61 Coronary angioplasty status; Z90.49 Acquired absence of other specified parts of digestive tract; Z98.890 Other specified postprocedural states; Z88.8 Allergy status to other drugs, medicaments and biological substances; Z79.899 Other long term (current) drug therapy
CPT/HCPCS: 36415; 74176; 80053; 85025; 85610; 99285

== ENCOUNTER 2020-05-26 16:33 | Emergency (ER) | payer MEDICARE ==
[~2020-05-26] VITALS: Ht 172.7 cm; Wt 70.0 kg
[~2020-05-26 16:33] MED LIST changes: -LEVE500T PO
--- NOTE | 2020-05-26 18:18 | NUR ---
BROUGHT HERE BY
[2020-05-26] MEDS ORDERED: LORazepam 2 mg/ml vial IV ONE (18:45)
[2020-05-26] MEDS ORDERED: morphine 10mg/ml inj. IV ONE (18:45)
--- NOTE | 2020-05-26 19:24 | NUR ---
Amada ([facility]) #[phone]
[2020-05-26 19:32] VITALS: BP 124/46
--- NOTE | 2020-05-26 19:52 | NUR ---
CHAPARRO Blake [facility] #[phone]
== END 2020-05-26 21:23 | disposition home or self-care (01) ==
LOC: ER 16:34
DX: S09.8XXA Other specified injuries of head, initial encounter (principal); S33.5XXA Sprain of ligaments of lumbar spine, initial encounter; R11.0 Nausea; R10.84 Generalized abdominal pain; M54.89 Other dorsalgia; M54.2 Cervicalgia; R51 Headache; I25.10 Atherosclerotic heart disease of native coronary artery without angina pectoris; I10 Essential (primary) hypertension; E11.9 Type 2 diabetes mellitus without complications; G89.29 Other chronic pain; Z86.73 Personal history of transient ischemic attack (TIA), and cerebral infarction without residual deficits; Z87.440 Personal history of urinary (tract) infections; Z90.89 Acquired absence of other organs; Z98.890 Other specified postprocedural states; Z88.1 Allergy status to other antibiotic agents; Z88.8 Allergy status to other drugs, medicaments and biological substances; Z79.899 Other long term (current) drug therapy; W19.XXXA Unspecified fall, initial encounter; Y93.89 Activity, other specified; Y92.89 Other specified places as the place of occurrence of the external cause; Y99.8 Other external cause status
CPT/HCPCS: 70450; 72125; 73552; 73564; 74176; 96374; 96375; 99285; J2060; J2270

== ENCOUNTER 2022-08-19 18:56 | Emergency (ER) | payer MEDICARE, MEDICAID ==
[~2022-08-19] VITALS: Ht 165.1 cm; Wt 72.7 kg
[~2022-08-19 18:56] MED LIST changes: -LISI-604 PO; +LISI5TAB22 PO
[2022-08-19] MEDS ORDERED: oxyCODONE IR 5mg (immed. release) tablet PO ONE (19:10)
[2022-08-19 19:39] LABS: BASOPHILS % (AUTO) 0.4 % (0-1); EOSINOPHILS # (AUTO) 0.5 X10'3 (0-0.9); EOSINOPHILS % (AUTO) 7.6 % (0-6); HEMOGLOBIN 10.6 g/dl (12.0-16.0); LYMPHOCYTES # (AUTO) 1.4 X10'3 (1.1-4.8); MEAN CORPUSCULAR HEMOGLOBIN 31.2 PG (27.0-31.0); MEAN CORPUSCULAR HGB CONC 34.1 g/dL (33.0-36.5); MEAN CORPUSCULAR VOLUME 91.6 FL (78-98); MONOCYTES # (AUTO) 0.7 X10'3 (0-0.9); MONOCYTES % (AUTO) 10.1 % (2-12); NEUTROPHILS # (AUTO) 4.2 X10'3 (1.8-7.7); NEUTROPHILS % (AUTO) 60.9 % (42-75); PLATELET COUNT 375 X10'3 (140-440); RED BLOOD COUNT 3.39 X10'6 (4.20-5.60); RED CELL DISTRIBUTION WIDTH 14.8 % (11.5-14.5); WHITE BLOOD COUNT 6.9 X10'3 (4.5-11.0)
[2022-08-19 19:49] LABS: ALANINE AMINOTRANSFERASE 36 U/L (12-78); ALBUMIN 2.4 G/DL (3.4-5.0); ALBUMIN/GLOBULIN RATIO 0.6 (1.1-1.5); ALKALINE PHOSPHATASE 70 IU/L (46-116); ANION GAP 6 (8-16); ASPARTATE AMINO TRANSFERASE 18 U/L (10-37); BILIRUBIN,TOTAL 0.5 MG/DL (0.1-1.0); BLOOD UREA NITROGEN 20 MG/DL (7-18); BUN/CREATININE RATIO 22.2 (6.6-38.0); CALCIUM 8.3 MG/DL (8.5-10.1); CHLORIDE 97 MMOL/L (99-107); GLUCOSE 197 MG/DL (70-104); POTASSIUM 4.1 MMOL/L (3.5-5.1); SODIUM 134 MMOL/L (135-145); TOTAL CARBON DIOXIDE 30.9 MMOL/L (24-32); TOTAL PROTEIN 6.1 G/DL (6.4-8.2); eGFR 60 ML/MIN
--- NOTE | 2022-08-19 20:48 | NUR ---
SPOKE WITH PTS SON REQUESTING AN UPDATE. SON INFORMED OF PTS CONDITION.
--- NOTE | 2022-08-19 21:39 | NUR ---
SPOKE WITH RECIEVING NURSE AT [facility] TO GIVE AN UPDATE ON PTS CONDITION. INFORMED HER WE ARE AWAITING TRANSPORT.
[2022-08-19 23:30] VITALS: BP 150/85
== END 2022-08-19 23:49 ==
LOC: ER 18:57
DX: R07.89 Other chest pain (principal); R06.02 Shortness of breath; I25.10 Atherosclerotic heart disease of native coronary artery without angina pectoris; I10 Essential (primary) hypertension; E11.9 Type 2 diabetes mellitus without complications; G89.29 Other chronic pain; Z86.73 Personal history of transient ischemic attack (TIA), and cerebral infarction without residual deficits; Z87.440 Personal history of urinary (tract) infections; Z90.89 Acquired absence of other organs; Z98.890 Other specified postprocedural states; Z88.1 Allergy status to other antibiotic agents; Z88.8 Allergy status to other drugs, medicaments and biological substances; Z79.899 Other long term (current) drug therapy
CPT/HCPCS: 36415; 71045; 80053; 83880; 84484; 85025; 93005; 99285

== ENCOUNTER → 2022-10-12 | Emergency (ER) | payer MEDICARE, MEDICAID ==
[~2022-10-12] VITALS: Ht 165.1 cm; Wt 68.0 kg
[~2022-10-12] MED LIST changes: +FURO-150 PO; +furosemide 20MG tablet PO ONE
[2022-10-12 16:53] VITALS: BP 113/92
[2022-10-12 17:07] LABS: BASOPHILS % (AUTO) 0.4 % (0-1); EOSINOPHILS # (AUTO) 0.3 X10'3 (0-0.9); EOSINOPHILS % (AUTO) 4.7 % (0-6); HEMATOCRIT 31.1 % (35.0-45.0); HEMOGLOBIN 10.2 g/dl (12.0-16.0); LYMPHOCYTES # (AUTO) 1.4 X10'3 (1.1-4.8); MEAN CORPUSCULAR HEMOGLOBIN 29.4 PG (27.0-31.0); MEAN CORPUSCULAR HGB CONC 32.6 g/dL (33.0-36.5); MEAN CORPUSCULAR VOLUME 90.1 FL (78-98); MEAN PLATELET VOLUME 7.4 FL (7.4-10.4); MONOCYTES # (AUTO) 0.7 X10'3 (0-0.9); MONOCYTES % (AUTO) 10.4 % (2-12); NEUTROPHILS # (AUTO) 4.2 X10'3 (1.8-7.7); NEUTROPHILS % (AUTO) 63.5 % (42-75); PLATELET COUNT 239 X10'3 (140-440); RED BLOOD COUNT 3.45 X10'6 (4.20-5.60); RED CELL DISTRIBUTION WIDTH 15.5 % (11.5-14.5); WHITE BLOOD COUNT 6.5 X10'3 (4.5-11.0)
[2022-10-12 17:17] LABS: ALANINE AMINOTRANSFERASE 12 U/L (12-78); ALBUMIN/GLOBULIN RATIO 0.8 (1.1-1.5); ALKALINE PHOSPHATASE 88 IU/L (46-116); ANION GAP 8 (8-16); ASPARTATE AMINO TRANSFERASE 14 U/L (10-37); BILIRUBIN,TOTAL 0.6 MG/DL (0.1-1.0); BLOOD UREA NITROGEN 17 MG/DL (7-18); BUN/CREATININE RATIO 24.3 (6.6-38.0); CALCIUM 9.1 MG/DL (8.5-10.1); CHLORIDE 103 MMOL/L (99-107); GLUCOSE 175 MG/DL (70-104); POTASSIUM 4.7 MMOL/L (3.5-5.1); SODIUM 137 MMOL/L (135-145); TOTAL CARBON DIOXIDE 26.4 MMOL/L (24-32); TOTAL PROTEIN 6.8 G/DL (6.4-8.2); eGFR 81 ML/MIN
[2022-10-12 17:25] LABS: MAGNESIUM 1.6 MG/DL (1.5-2.4)
== END | disposition home or self-care (01) ==
LOC: ER 16:46
DX: I11.0 Hypertensive heart disease with heart failure (principal); I50.9 Heart failure, unspecified; J90 Pleural effusion, not elsewhere classified; E11.9 Type 2 diabetes mellitus without complications; G89.29 Other chronic pain; I25.10 Atherosclerotic heart disease of native coronary artery without angina pectoris; Z86.73 Personal history of transient ischemic attack (TIA), and cerebral infarction without residual deficits; Z90.49 Acquired absence of other specified parts of digestive tract; Z95.5 Presence of coronary angioplasty implant and graft; Z88.1 Allergy status to other antibiotic agents; Z88.8 Allergy status to other drugs, medicaments and biological substances; Z79.899 Other long term (current) drug therapy; Z88.5 Allergy status to narcotic agent; Z95.1 Presence of aortocoronary bypass graft
CPT/HCPCS: 36415; 71045; 80053; 83735; 83880; 84484; 85025; 93005; 99285

== ENCOUNTER 2024-01-06 22:32 | Emergency (ER) | payer MEDICARE ==
[~2024-01-06] VITALS: Ht 165.1 cm; Wt 68.2 kg
[~2024-01-06 22:32] MED LIST changes: -FURO-150 PO; -furosemide 20MG tablet PO ONE
[2024-01-07 01:27] LABS: ALANINE AMINOTRANSFERASE 17 U/L (12-78); ALBUMIN 3.5 G/DL (3.4-5.0); ALKALINE PHOSPHATASE 52 IU/L (46-116); ANION GAP 5 (8-16); ASPARTATE AMINO TRANSFERASE 21 U/L (10-37); BILIRUBIN,TOTAL 0.5 MG/DL (0.1-1.0); BLOOD UREA NITROGEN 32 MG/DL (7-18); CALCIUM 8.7 MG/DL (8.5-10.1); CHLORIDE 106 MMOL/L (99-107); CREATININE 0.89 MG/DL (0.40-0.90); GLUCOSE 133 MG/DL (70-104); SODIUM 141 MMOL/L (135-145); TOTAL CARBON DIOXIDE 29.7 MMOL/L (24-32); eCRCL 45 ML/MIN; eGFR 61 ML/MIN
[2024-01-07] MEDS: normal saline 1000ML IV soln IVB ONE (01:28)
[2024-01-07] MEDS: LORazepam 2 mg/ml vial IV ONE (01:28)
[2024-01-07 01:31] LABS: ETHANOL < 10 MG/DL (<10); LIPASE 34 U/L (16-77)
[2024-01-07 01:32] LABS: BASOPHILS % (AUTO) 0.6 % (0-1); EOSINOPHILS # (AUTO) 0.3 X10'3 (0-0.9); EOSINOPHILS % (AUTO) 4.2 % (0-6); HEMATOCRIT 34.1 % (35.0-45.0); HEMOGLOBIN 11.4 g/dl (12.0-16.0); LYMPHOCYTES # (AUTO) 1.6 X10'3 (1.1-4.8); LYMPHOCYTES % (AUTO) 23.7 % (21-51); MEAN CORPUSCULAR HEMOGLOBIN 30.9 PG (27.0-31.0); MEAN CORPUSCULAR HGB CONC 33.3 g/dL (33.0-36.5); MEAN CORPUSCULAR VOLUME 92.7 FL (78-98); MEAN PLATELET VOLUME 7.3 FL (7.4-10.4); MONOCYTES # (AUTO) 0.8 X10'3 (0-0.9); NEUTROPHILS # (AUTO) 3.9 X10'3 (1.8-7.7); NEUTROPHILS % (AUTO) 59.5 % (42-75); PLATELET COUNT 212 X10'3 (140-440); RED BLOOD COUNT 3.67 X10'6 (4.20-5.60); RED CELL DISTRIBUTION WIDTH 14.3 % (11.5-14.5); WHITE BLOOD COUNT 6.6 X10'3 (4.5-11.0)
[2024-01-07] MEDS: LORazepam 1 MG tablet PO ONE (01:50)
[2024-01-07] MEDS: normal saline 1000ml 1,000 ML IV ONE (04:22)
[2024-01-07 05:33] VITALS: BP 133/74; PULSE 76; RESP 16; TEMP 97.9; O2SAT 98
== END 2024-01-07 05:34 | disposition home or self-care (01) ==
LOC: ER 22:34
DX: F41.9 Anxiety disorder, unspecified (principal); E87.6 Hypokalemia; E86.0 Dehydration; I10 Essential (primary) hypertension; E11.9 Type 2 diabetes mellitus without complications; Z88.1 Allergy status to other antibiotic agents; Z88.8 Allergy status to other drugs, medicaments and biological substances; Z88.5 Allergy status to narcotic agent; Z79.899 Other long term (current) drug therapy; Z79.1 Long term (current) use of non-steroidal anti-inflammatories (NSAID); Z98.890 Other specified postprocedural states
CPT/HCPCS: 36415; 70450; 71045; 80053; 80320; 83690; 84484; 85025; 93005; 96360; 96361; 99285; J7030; A4615